=== PATIENT | female | born 1995 | race Caucasian/White ===

== ENCOUNTER → 2022-04-07 12:07 | Outpatient (BNVA) | payer SELFPAY | PROVIDERS: Family Provider Pediatrics; PCP Family Medicine; Visit Provider Registered Nurse Neonatal Intensive Care | DX: N39.0 Urinary tract infection, site not specified (principal); Z32.00 Encounter for pregnancy test, result unknown | CPT/HCPCS: 81000; 81025 ==

== ENCOUNTER 2022-11-27 14:13 | Emergency (ER) | payer MEDICAID, SELFPAY ==
[2022-11-27 14:21] VITALS: BP 121/85; PULSE 115; RESP 20; TEMP 37; O2SAT 98; BMI 24.4
--- NOTE | 2022-11-27 14:46 | W.ED.PSYCHS ---
Documented by User: AUNDREA Whittington 11/27/22 17:20 HPI - Psych General: Chief Complaint: Psychiatric Symptoms Stated Complaint: psych eval Time Seen by Provider: 11/27/22 14:37 History of Present Illness: Patient is a 27-year-old female comes to the ED with SI. Patient says for the past couple days she has been having worsening thoughts of SI. She told nursing triage that she had a plan to slit her throat while nude in front of a mirror. She states that she does practice cutting and recently cut her right thigh with razor blade. Patient states that she has a history of multiple personality disorder. She hears voices in her head and one of the voices constantly telling her to hurt or harm herself. Endorses methamphetamine use and says the last time she has had meth was approximately a week ago. Patient states she was supposed to be on medications, but does not currently take any medications. Associated symptoms: Reports depression and suicidal ideation Review of Systems Const: Denies: fever(s), chills or fatigue Eyes: Denies: change in vision or eye discomfort ENMT: Denies: throat pain, odynophagia, nasal discharge or nasal congestion Card: Denies: chest pain, palpitations, edema, swelling of feet/ankles, dyspnea on exertion or orthopnea Resp: Denies: dyspnea, productive cough or non-productive cough GI: Denies: abdominal pain, nausea, vomiting, diarrhea, constipation or hematochezia : Denies: flank pain, dysuria or hematuria Musc: Denies: neck pain, back pain or extremity swelling Skin/Breast: Denies: rash or new lesions Neuro: Denies: headache(s), numbness in extremities or weakness in extremities Psych: Reports: anxiety, depression and suicidal ideation [facility] ED PFSH: Medical History (Updated 11/27/22 @ 17:20 by AUNDREA Whittington) Multiple personality disorder Surgical History (Updated 11/27/22 @ 17:20 by AUNDREA Whittington) No pertinent past surgical history Physical Exam Const: COMMON NORMALS: patient oriented x3 and alert HENMT: COMMON NORMALS: normocephalic HEAD & SCALP: normocephalic MOUTH: Normal oral and palatal mucosa present THROAT: posterior oropharynx normal and uvula midline Neck/C-Spine: COMMON NORMALS: supple GENERAL: Yes normal visual inspection Resp: COMMON NORMALS: normal respiratory effort, No retractions, No use of accessory muscles and clear to auscultation bilaterally AUSCULTATION: clear to auscultation bilaterally Cardio: COMMON NORMALS: regular rate, regular rhythm, S1 normal heart sound present, S2 normal heart sound present, No gallops present (Cardio), No clicks present (Cardio), No murmurs present (Cardio) and Peripheral pulses 2+ throughout RATE: regular rate RHYTHM: regular rhythm HEART SOUNDS: S1 normal heart sound present and S2 normal heart sound present PERIPHERAL PULSES: Peripheral pulses 2+ throughout GI: COMMON NORMALS: Normal to inspection, nondistended, normoactive bowel sounds present, Soft to palpation, non-tender and no masses PALPATION: Yes Soft to palpation : COMMON NORMALS: Yes no CVA tenderness BLADDER/KIDNEY EXAM: Yes no CVA tenderness Back/Pelvis: COMMON NORMALS: no CVA tenderness Extremity: COMMON NORMALS: normal to inspection Neuro: COMMON NORMALS: patient oriented x3 SENSORIUM/ORIENTATION: Yes alert GAIT: Yes Normal gait present Psych: COMMON NORMALS: speech normal SPEECH: Yes normal speech THOUGHT CONTENT: Yes Suicidality present and Yes Hallucination(s) present auditory Skin: GENERAL SKIN EXAM: dry skin Course Vital Signs: Vital signs: Vital Signs Temperature 98.6 F 11/27/22 14:21 Pulse Rate 90 11/27/22 17:58 Respiratory Rate 17 11/27/22 17:58 Blood Pressure 114/60 11/27/22 17:58 Pulse Oximetry 98 11/27/22 17:58 Oxygen Delivery Me thod 11/27/22 17:58 [facility] - Psych Medical Decision Making Patient is a 27-year-old female comes to the ED with SI. Patient states she is also hearing voices that tell her to harm herself. She is not on any current medications. Vitals are stable. Psych prescreening labs performed. I contacted Dr. Riggs and told about patient case and they are unable to accept admission at this time because the NPU is full. The plan now is to call around to outside facilities to try to set up a bed to transfer patient. [facility] had an available bed and accepts admission of patient to their facility. Pt will be set up with EMS for transport. Lab Data I reviewed the patient's lab results. 11/27/22 15:40 11/27/22 15:40 Laboratory Results WBC 11.0 10^3/uL (4.0-10.0) H 11/27/22 15:40 RBC 5.08 10^6/uL (4.1-5.3) 11/27/22 15:40 Hgb 13.3 g/dL (11.5-15.3) 11/27/22 15:40 Hct 43.6 % (37.0-47.0) 11/27/22 15:40 MCV 85.8 fl (81-99) 11/27/22 15:40 MCH 26.2 pg (28.0-34.0) L 11/27/22 15:40 MCHC 30.5 g/dL (30.0-36.0) 11/27/22 15:40 RDW 15.7 % (12.1-15.1) H 11/27/22 15:40 Plt Count 292 10^3/cmm (130-400) 11/27/22 15:40 MPV 11.5 fL (7.4-10.4) H 11/27/22 15:40 Neut % (Auto) 78.7 % 11/27/22 15:40 Lymph % (Auto) 14.7 % 11/27/22 15:40 [place] % (Auto) 5.3 % 11/27/22 15:40 Eos % (Auto) 0.4 % 11/27/22 15:40 Baso % (Auto) 0.5 % 11/27/22 15:40 Neut # (Auto) 8.63 10^3/uL (1.8-7.7) H 11/27/22 15:40 Lymph # (Auto) 1.6 10^3/uL (0.8-4.8) 11/27/22 15:40 [place] # (Auto) 0.6 10^3/uL (0.2-0.9) 11/27/22 15:40 Eos # (Auto) 0.0 10^3/uL (0.0-0.8) 11/27/22 15:40 Baso # (Auto) 0.1 10^3/uL (0.0-0.1) 11/27/22 15:40 Nucleated RBC % (auto) 0 % 11/27/22 15:40 Nucleated RBCs # 0.0 /100WBC 11/27/22 15:40 Sodium 139 mmol/L (136-145) 11/27/22 15:40 Potassium 4.2 mmol/L (3.5-5.1) 11/27/22 15:40 Chloride 100 mmol/L (98-107) 11/27/22 15:40 Carbon Dioxide 31 mmol/L (22-29) H 11/27/22 15:40 Anion Gap 12.2 (5-19) 11/27/22 15:40 BUN 16 mg/dL (6-20) 11/27/22 15:40 Creatinine 0.6 mg/dL (0.5-0.9) 11/27/22 15:40 GFR Calculation 118.2 mL/min (90-130) 11/27/22 15:40 Glucose 111 mg/dL (65-115) 11/27/22 15:40 Calculated Osmolality 290 mOsm/kg (285-295) 11/27/22 15:40 Calcium 9.3 mg/dL (8.5-10.5) 11/27/22 15:40 Total Bilirubin 0.8 mg/dL (0.15-1.2) 11/27/22 15:40 AST 23 U/L (0-32) 11/27/22 15:40 ALT 21 U/L (0-33) 11/27/22 15:40 Alkaline Phosphatase 68 U/L (35-105) 11/27/22 15:40 Total Protein 7.4 g/dL (6.6-8.7) 11/27/22 15:40 Albumin 4.3 g/dL (3.5-5.2) 11/27/22 15:40 Globulin 3.1 g/dL (1.3-4.6) 11/27/22 15:40 HCG, Qual Negative (Negative) 11/27/22 15:40 Urine Color Straw (Yellow) 11/27/22 15:07 Urine Appearance Clear (CLEAR) 11/27/22 15:07 Urine pH 5 (5-7) 11/27/22 15:07 Ur Specific [place] 1.015 (1.005-1.030) 11/27/22 15:07 Urine Protein Neg (Negative) 11/27/22 15:07 Urine Glucose (UA) Norm (Normal) 11/27/22 15:07 Urine Ketones Negative (Negative) 11/27/22 15:07 Urine Blood 2+ (Negative) H 11/27/22 15:07 Urine Nitrate Negative (Negative) 11/27/22 15:07 Urine Bilirubin Neg (Negative) 11/27/22 15:07 Prot Sulfosalicylic Acd Negative (Negative) 11/27/22 15:07 Urine Urobilinogen Norm mg/dL (Negative) 11/27/22 15:07 Ur Leukocyte Esterase Negative (Negative) 11/27/22 15:07 Urine RBC Rare /hpf (0-2) 11/27/22 15:07 Urine WBC 0-4 /hpf (0-5) H 11/27/22 15:07 Ur Squamous Epith Cells 0-4 /hpf (0-5) H 11/27/22 15:07 Amorphous Sediment Not Reportable 11/27/22 15:07 Urine Bacteria Trace /hpf (NONE) 11/27/22 15:07 Salicylates < 0.3 mg/dL (3-10) L 11/27/22 15:40 Urine Opiates Screen Negative ng/mL (Negative) 11/27/22 15:07 Acetaminophen < 5.0 ug/mL (10-30) L 11/27/22 15:40 Ur Barbiturates Screen Negative ng/mL (Negative) 11/27/22 15:07 Ur Phencyclidine Scrn Negative ng/mL (Negative) 11/27/22 15:07 Ur Amphetamines Screen Negative ng/mL (Negative) 11/27/22 15:07 U Benzodiazepines Scrn Negative ng/mL (Negative) 11/27/22 15:07 Urine Cocaine Screen Negative ng/mL (Negative) 11/27/22 15:07 U Marijuana (THC) Screen Negative ng/mL (Negative) 11/27/22 15:07 Ethyl Alcohol < 10 mg/dL (0-10) 11/27/22 15:40 Coronavirus 229E (PCR) Not detected (NOT DETECT) 11/27/22 19:43 SARS-CoV-2 (PCR) Not detected (NOT DETECT) 11/27/22 19:43 Discharge Plan Discharge Patient Disposition: Xfer Psychiatric Hosp Clinical Impression: Suicidal ideation Condition: Stable Patient Instructions: Opioid Safety, Pain Management Sign Out Sign Out Data: Patient Sign Out occurred on 11/27/22 at 17:27. Patient's care was discussed, and care was transferred from to Mario Schaeffer DO. Coding Level of Care Code ED Coding Manager for Chg Fwd Exam Comprehensive Documented by User: Mario Schaeffer DO 11/28/22 07:38 HPI - Psych General: Chief Complaint: Psychiatric Symptoms Stated Complaint: psych eval Time Seen by Provider: 11/27/22 14:37 PFSH ED PFSH: Medical History (Updated 11/27/22 @ 17:20 by AUNDREA Whittington) Multiple personality disorder Surgical History (Updated 11/27/22 @ 17:20 by AUNDREA Whittington) No pertinent past surgical history Course Vital Signs: Vital signs: Vital Signs Temperature 98.6 F 11/27/22 14:21 Pulse Rate 90 11/27/22 17:58 Respiratory Rate 17 11/27/22 17:58 Blood Pressure 114/60 11/27/22 17:58 Pulse Oximetry 98 11/27/22 17:58 Oxygen Delivery Me thod 11/27/22 17:58 MDM - Psych Medical Decision Making Patient is a 27-year-old female comes to the ED with SI. Patient states she is also hearing voices that tell her to harm herself. She is not on any current medications. Vitals are stable. Psych prescreening labs performed. I contacted Dr. Riggs and told about patient case and they are unable to accept admission at this time because the NPU is full. The plan now is to call around to outside facilities to try to set up a bed to transfer patient. [facility] had an available bed and accepts admission of patient to their facility. Pt will be set up with EMS for transport. Chart reviewed and patient discussed with midlevel. Agree with assessment and plan. Patient was stable in the emergency room was transported to [place] psychiatric department Lab Data 11/27/22 15:40 11/27/22 15:40 Laboratory Results WBC 11.0 10^3/uL (4.0-10.0) H 11/27/22 15:40 RBC 5.08 10^6/uL (4.1-5.3) 11/27/22 15:40 Hgb 13.3 g/dL (11.5-15.3) 11/27/22 15:40 Hct 43.6 % (37.0-47.0) 11/27/22 15:40 MCV 85.8 fl (81-99) 11/27/22 15:40 MCH 26.2 pg (28.0-34.0) L 11/27/22 15:40 MCHC 30.5 g/dL (30.0-36.0) 11/27/22 15:40 RDW 15.7 % (12.1-15.1) H 11/27/22 15:40 Plt Count 292 10^3/cmm (130-400) 11/27/22 15:40 MPV 11.5 fL (7.4-10.4) H 11/27/22 15:40 Neut % (Auto) 78.7 % 11/27/22 15:40 Lymph % (Auto) 14.7 % 11/27/22 15:40 [place] % (Auto) 5.3 % 11/27/22 15:40 Eos % (Auto) 0.4 % 11/27/22 15:40 Baso % (Auto) 0.5 % 11/27/22 15:40 Neut # (Auto) 8.63 10^3/uL (1.8-7.7) H 11/27/22 15:40 Lymph # (Auto) 1.6 10^3/uL (0.8-4.8) 11/27/22 15:40 [place] # (Auto) 0.6 10^3/uL (0.2-0.9) 11/27/22 15:40 Eos # (Auto) 0.0 10^3/uL (0.0-0.8) 11/27/22 15:40 Baso # (Auto) 0.1 10^3/uL (0.0-0.1) 11/27/22 15:40 Nucleated RBC % (auto) 0 % 11/27/22 15:40 Nucleated RBCs # 0.0 /100WBC 11/27/22 15:40 Sodium 139 mmol/L (136-145) 11/27/22 15:40 Potassium 4.2 mmol/L (3.5-5.1) 11/27/22 15:40 Chloride 100 mmol/L (98-107) 11/27/22 15:40 Carbon Dioxide 31 mmol/L (22-29) H 11/27/22 15:40 Anion Gap 12.2 (5-19) 11/27/22 15:40 BUN 16 mg/dL (6-20) 11/27/22 15:40 Creatinine 0.6 mg/dL (0.5-0.9) 11/27/22 15:40 GFR Calculation 118.2 mL/min (90-130) 11/27/22 15:40 Glucose 111 mg/dL (65-115) 11/27/22 15:40 Calculated Osmolality 290 mOsm/kg (285-295) 11/27/22 15:40 Calcium 9.3 mg/dL (8.5-10.5) 11/27/22 15:40 Total Bilirubin 0.8 mg/dL (0.15-1.2) 11/27/22 15:40 AST 23 U/L (0-32) 11/27/22 15:40 ALT 21 U/L (0-33) 11/27/22 15:40 Alkaline Phosphatase 68 U/L (35-105) 11/27/22 15:40 Total Protein 7.4 g/dL (6.6-8.7) 11/27/22 15:40 Albumin 4.3 g/dL (3.5-5.2) 11/27/22 15:40 Globulin 3.1 g/dL (1.3-4.6) 11/27/22 15:40 HCG, Qual Negative (Negative) 11/27/22 15:40 Urine Color Straw (Yellow) 11/27/22 15:07 Urine Appearance Clear (CLEAR) 11/27/22 15:07 Urine pH 5 (5-7) 11/27/22 15:07 Ur Specific [place] 1.015 (1.005-1.030) 11/27/22 15:07 Urine Protein Neg (Negative) 11/27/22 15:07 Urine Glucose (UA) Norm (Normal) 11/27/22 15:07 Urine Ketones Negative (Negative) 11/27/22 15:07 Urine Blood 2+ (Negative) H 11/27/22 15:07 Urine Nitrate Negative (Negative) 11/27/22 15:07 Urine Bilirubin Neg (Negative) 11/27/22 15:07 Prot Sulfosalicylic Acd Negative (Negative) 11/27/22 15:07 Urine Urobilinogen Norm mg/dL (Negative) 11/27/22 15:07 Ur Leukocyte Esterase Negative (Negative) 11/27/22 15:07 Urine RBC Rare /hpf (0-2) 11/27/22 15:07 Urine WBC 0-4 /hpf (0-5) H 11/27/22 15:07 Ur Squamous Epith Cells 0-4 /hpf (0-5) H 11/27/22 15:07 Amorphous Sediment Not Reportable 11/27/22 15:07 Urine Bacteria Trace /hpf (NONE) 11/27/22 15:07 Salicylates < 0.3 mg/dL (3-10) L 11/27/22 15:40 Urine Opiates Screen Negative ng/mL (Negative) 11/27/22 15:07 Acetaminophen < 5.0 ug/mL (10-30) L 11/27/22 15:40 Ur Barbiturates Screen Negative ng/mL (Negative) 11/27/22 15:07 Ur Phencyclidine Scrn Negative ng/mL (Negative) 11/27/22 15:07 Ur Amphetamines Screen Negative ng/mL (Negative) 11/27/22 15:07 U Benzodiazepines Scrn Negative ng/mL (Negative) 11/27/22 15:07 Urine Cocaine Screen Negative ng/mL (Negative) 11/27/22 15:07 U Marijuana (THC) Screen Negative ng/mL (Negative) 11/27/22 15:07 Ethyl Alcohol < 10 mg/dL (0-10) 11/27/22 15:40 Coronavirus 229E (PCR) Not detected (NOT DETECT) 11/27/22 19:43 SARS-CoV-2 (PCR) Not detected (NOT DETECT) 11/27/22 19:43 Discharge Plan Discharge Patient Disposition: Xfer Psychiatric Hosp Clinical Impression: Suicidal ideation Condition: Stable Patient Instructions: Opioid Safety, Pain Management Sign Out Sign Out Data: Patient Sign Out occurred on 11/27/22 at 17:27. Patient's care was discussed, and care was transferred from to Mario Schaeffer DO. Coding Level of Care Code ED Coding Manager for Chg Fwd Exam Comprehensive
[2022-11-27 15:48] LABS: Basophils # 0.1 10^3/uL (0.0-0.1); Basophils % 0.5 %; Eosinophils % 0.4 %; Hematocrit 43.6 % (37.0-47.0); Hemoglobin 13.3 g/dL (11.5-15.3); Lymphocytes # 1.6 10^3/uL (0.8-4.8); Lymphocytes % 14.7 %; Mean Corpuscular HGB Conc 30.5 g/dL (30.0-36.0); Mean Corpuscular Hemoglobin 26.2 pg (28.0-34.0); Mean Corpuscular Volume 85.8 fl (81-99); Mean Platelet Volume 11.5 fL (7.4-10.4); Monocytes # 0.6 10^3/uL (0.2-0.9); Monocytes % 5.3 %; Neutrophils # 8.63 10^3/uL (1.8-7.7); Neutrophils % 78.7 %; Nucleated Red Blood Cells % 0 %; Platelet Count 292 10^3/cmm (130-400); Red Blood Count 5.08 10^6/uL (4.1-5.3); Red Cell Distribution Width 15.7 % (12.1-15.1)
[2022-11-27 16:00] LABS: Add Urine Microscopic? YES; Amphetamines Screen Urine Negative (Negative); Barbiturates Screen Urine Negative (Negative); Benzodiazepines Screen Urine Negative (Negative); Bilirubin Urine Neg (Negative); Blood Urine 2+ (Negative); Cocaine Screen Urine Negative (Negative); Glucose Urine UA Norm (Normal); Ketones Urine Negative (Negative); Leukocyte Esterase Urine Negative (Negative); Nitrate Urine Negative (Negative); Opiate Screen Urine Negative (Negative); PCP Screen Urine Negative (Negative); Protein Urine Neg (Negative); RBC Urine RARE /hpf (0-2); Specific Gravity, Urine 1.015 (1.005-1.030); Sulfosalicylic Acid Urine Negative (Negative); THC Screen Urine Negative (Negative); Urine Appearance Clear (CLEAR); Urine Color Straw (Yellow); Urobilinogen Urine Norm (Negative); pH Urine 5 (5-7)
[2022-11-27 16:01] LABS: Add Urine Culture? No; Bacteria Urine TRACE /hpf; Squamous Epithelial Cell Urine 0-4 /hpf (0-5); WBC Urine 0-4 /hpf (0-5)
[2022-11-27 16:04] VITALS: PULSE 100; RESP 17; O2SAT 97
[2022-11-27 16:13] LABS: HCG, Serum Qual Negative (Negative)
[2022-11-27] MEDS: LORazepam 2 mg Tablet PO (16:22)
[2022-11-27 16:27] LABS: Alanine Aminotransferase 21 U/L (0-33); Albumin Level 4.3 g/dL (3.5-5.2); Alkaline Phosphatase 68 U/L (35-105); Anion Gap 12.2 (5-19); Aspartate Amino Transferase 23 U/L (0-32); Blood Urea Nitrogen 16 mg/dL (6-20); Calcium 9.3 mg/dL (8.5-10.5); Carbon Dioxide 31 mmol/L (22-29); Chloride 100 mmol/L (98-107); Globulin 3.1 g/dL (1.3-4.6); Glomerular Filtration Rate 118.2 mL/min (90-130); Glucose 111 mg/dL (65-115); Osmolality Calculated 290 mOsm/kg (285-295); Potassium 4.2 mmol/L (3.5-5.1); Sodium 139 mmol/L (136-145); Total Bilirubin 0.8 mg/dL (0.15-1.2); Total Protein 7.4 g/dL (6.6-8.7)
[2022-11-27 16:29] LABS: Acetaminophen < 5.0 ug/mL (10-30); Alcohol Level < 10 mg/dL (0-10); Salicylate < 0.3 mg/dL (3-10)
[2022-11-27 17:58] VITALS: BP 114/60; PULSE 90; RESP 17; O2SAT 98
[2022-11-27 22:01] LABS: Adenovirus Not Detected (NOT DETECT); Chlamydia Pneumoniae Not Detected (NOT DETECT); Coronavirus 229E,HKU1,NL63,OC4 Not Detected (NOT DETECT); Human Metapneumovirus Not Detected (NOT DETECT); Human Rhinovirus/Enterovirus Not Detected (NOT DETECT); Influenza A Not Detected (NOT DETECT); Influenza A H1 Not Detected (NOT DETECT); Influenza A H1-2009 Not Detected (NOT DETECT); Influenza A H3 Not Detected (NOT DETECT); Influenza B Not Detected (NOT DETECT); Mycoplasma Pneumoniae Not Detected (NOT DETECT); Parainfluenza Virus Type 1 Not Detected (NOT DETECT); Parainfluenza Virus Type 2 Not Detected (NOT DETECT); Parainfluenza Virus Type 3 Not Detected (NOT DETECT); Parainfluenza Virus Type 4 Not Detected (NOT DETECT); Respiratory Syncytial Virus A Not Detected (NOT DETECT); Respiratory Syncytial Virus B Not Detected (NOT DETECT); SARS-COV-2 Not Detected (NOT DETECT)
== END 2022-11-27 20:11 ==
PROVIDERS: Physician Assistant; Emergency Provider Family Medicine
DX: R45.851 Suicidal ideations (principal); Z20.822 Contact with and (suspected) exposure to COVID-19
CPT/HCPCS: 36415; 80053; 80306; 80307; 81001; 84703; 85025; 87635; 99283

== ENCOUNTER 2023-01-20 09:53 | Inpatient (IN) | payer MEDICAID, SELFPAY ==
[2023-01-20 10:06] VITALS: BP 117/83; PULSE 121; RESP 16; TEMP 37.1; O2SAT 98
--- NOTE | 2023-01-20 10:59 | PC.PHAR ---
PT STATES SHE TAKES CARE OF HER OWN MEDICATIONS-PT STATES SHE IS STILL TAKING ALL HER MEDS EXCEPT FOR BUSPAR 10MG TID FILLED 11/30/22 20D/S STATES SHE RAN OUT LAST TUESDAY AND WOULD LIKE TO GET THE MG INCREASED-EXT MED SHOWS ALL OTHER MEDS FILLED ON 11/30/22 30D/S PT STATES STILL HAS SOME OF THE MEDICATIONS-PT STATES SHE IS NOT TAKING HYDROXYZINE PAMOATE 50MG Q6H PRN RX FILLED 11/30/22 30DS-PT STATES SHE IS NOT USING THE NICOTINE PATCHES- PT STATES ARE MADE IN THE PHARMACY COMMENTS
[2023-01-20 11:00] LABS: Basophils % 0.4 %; Eosinophils % 0.3 %; Hematocrit 45.5 % (37.0-47.0); Hemoglobin 13.8 g/dL (11.5-15.3); Lymphocytes # 1.1 10^3/uL (0.8-4.8); Lymphocytes % 10.9 %; Mean Corpuscular HGB Conc 30.3 g/dL (30.0-36.0); Mean Corpuscular Hemoglobin 26.3 pg (28.0-34.0); Mean Corpuscular Volume 86.8 fl (81-99); Monocytes # 0.3 10^3/uL (0.2-0.9); Monocytes % 3.4 %; Neutrophils # 8.25 10^3/uL (1.8-7.7); Neutrophils % 84.5 %; Nucleated Red Blood Cells % 0 %; Platelet Count 266 10^3/cmm (130-400); Red Blood Count 5.24 10^6/uL (4.1-5.3); Red Cell Distribution Width 14.7 % (12.1-15.1); White Blood Count 9.8 10^3/uL (4.0-10.0)
[2023-01-20 11:06] LABS: Amphetamines Screen Urine Positive (Negative); Barbiturates Screen Urine Negative (Negative); Benzodiazepines Screen Urine Negative (Negative); Cocaine Screen Urine Negative (Negative); Opiate Screen Urine Negative (Negative); PCP Screen Urine Negative (Negative); THC Screen Urine Negative (Negative)
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
[2023-01-20 11:09] LABS: Add Urine Microscopic? YES; Bilirubin Urine Neg (Negative); Blood Urine 3+ (Negative); Glucose Urine UA Norm (Normal); Ketones Urine 1+ (Negative); Leukocyte Esterase Urine 1+ (Negative); Nitrate Urine Negative (Negative); Protein Urine Neg (Negative); Urine Appearance Hazy (CLEAR); Urine Color Yellow (Yellow); Urobilinogen Urine Neg (Negative); pH Urine 5 (5-7)
[2023-01-20 11:12] LABS: HCG, Serum Qual Negative (Negative)
[2023-01-20 11:13] LABS: Add Urine Culture? No; Amorphous Sediment Urine 1+ /hpf; Bacteria Urine 2+ /hpf; Hyaline Casts Urine 0-4 /lpf; Mucus Urine 2+ /hpf; RBC Urine 80-100 /hpf (0-2); WBC Urine 25-40 /hpf (0-5)
[2023-01-20 11:18] LABS: Alanine Aminotransferase 16 U/L (0-33); Albumin Level 4.5 g/dL (3.5-5.2); Alkaline Phosphatase 50 U/L (35-105); Aspartate Amino Transferase 19 U/L (0-32); Blood Urea Nitrogen 15 mg/dL (6-20); Carbon Dioxide 25 mmol/L (22-29); Chloride 103 mmol/L (98-107); Creatinine Clr Calc Pharmacy 123.8322; Globulin 3.2 g/dL (1.3-4.6); Glomerular Filtration Rate 118.2 mL/min (90-130); Glucose 89 mg/dL (65-115); Osmolality Calculated 288 mOsm/kg (285-295); Sodium 139 mmol/L (136-145); Total Bilirubin 0.8 mg/dL (0.15-1.2); Total Protein 7.7 g/dL (6.6-8.7)
[2023-01-20 11:19] LABS: Acetaminophen < 5.0 ug/mL (10-30); Salicylate < 0.3 mg/dL (3-10)
[2023-01-20 12:29] VITALS: BP 138/88; PULSE 115; RESP 17; TEMP 36.6; O2SAT 95
[2023-01-20 12:32] VITALS: BP 117/83; PULSE 121; RESP 16; TEMP 37.1; O2SAT 98
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
[2023-01-20 14:00] VITALS: BP 140/89; PULSE 98; RESP 17; TEMP 36.5; O2SAT 98
[2023-01-20 22:00] VITALS: BP 116/65; PULSE 110; RESP 15; TEMP 36.8; O2SAT 98
[2023-01-21 06:00] VITALS: RESP 18
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
--- NOTE | 2023-01-21 08:28 | PC.OT ---
OT Clair Attempted - Patient asleep in bed at time of evaluation, will attempt again later this afternoon.
[2023-01-21] MEDS: OLANZapine 5 mg ODT PO (11:15)
[2023-01-21 14:00] VITALS: BP 108/68; PULSE 106; RESP 18; TEMP 36.7; O2SAT 97
[2023-01-21 22:00] VITALS: BP 113/68; PULSE 82; RESP 15; TEMP 36.7; O2SAT 97
[2023-01-22 06:00] VITALS: RESP 17
--- NOTE | 2023-01-22 13:43 | P.NPUPN_ITS ---
Subjective NPU Subjective: Patient presented today reporting she was doing a little better. She continues to deny of the accusations on the 96-hour hold as well as deny recent drug use. She reports not having used for weeks to a month and her UDS is positive for amphetamines. She denied having any idea how that could be and had no explanation for her bizarre behavior prior to admission and her jitteriness and strange behaviors after admission. We discussed making sure her home medications were restarted and appropriate and she denied any need for any medication changes. Mental Status Exam MSE Comments: This is a slender white female in hospital scrubs with limited grooming and eye contact. Notable scarring onher arms and likely track rivers and bruising of different ages. No abnormal movements except for mild psychomotor agitation. Cooperative with exam in mild distress. Speech was limited and increased rate and normal volume. Mood described as okay, affect is congruent. Thought process, organized. Thought content: patient denies suicidal or homicidal ideation, no delusions reported but psychosis noted likely secondary to methamphetamine use, and denies any auditory or visual hallucinations. Attention and concentration are intact and memory appeared unreliable but none were formally tested. She is alert and oriented times three. Insight and judgment are impaired. Impulse control is impaired. Vitals/I&O/Wt Last Vital Signs Temp 98.0 F 01/21/23 22:00 Pulse 82 01/21/23 22:00 Resp 17 01/22/23 06:00 BP 113/68 01/21/23 22:00 Pulse Ox 97 01/21/23 22:00 O2 Del Method 01/21/23 22:00 Weight last 48 hrs Weight 56.699 kg Data NPU 01/20/23 10:43 01/20/23 10:43 A&P Assessment and plan (1) Suicidal ideation: (2) Methamphetamine use disorder, severe: (3) Psychosis: Plan This is a 27 year old white woman with a history of trauma, history of depr ession, anxiety and PTSD, positive UDS for amphetamine use, and genetic loading for mental health, addiction and lethality issues who presents with psychosis likely secondary to methamphetamine use reporting she does not know why she presents but is currently open to continuing the medications she is currently taking in the psychiatric unit. 1. Continue current medications and make sure all home medications were restarted. 2. Encourage individual, group and milieu therapy 3. Continue q-15 minute check for safety 4. Recommend sober living treatment at the highest level of care to which the patient is willing to commit. Involuntary Hold Information 96 Hour Hold: 96 Hour Involuntary Admission: Yes 96 Hour Hold Ending Date: 01/26/23 96 Hour Hold Ending Time: 11:30 Attestations NPU Medical Necessity Statement*: Inpatient hospitalization is medically necessary and the clinically appropriate intervention at this time. We will monitor medications and make changes as indicated. Likely length of stay is three to five days. Coding Level of Care Code Acute Code for Chg Fwd Diagnoses Suicidal ideation R45.851 Methamphetamine use disorder, severe F15.20 Psychosis F29
[2023-01-22 14:00] VITALS: BP 105/60; PULSE 85; RESP 16; TEMP 36.7; O2SAT 97
[2023-01-22] MEDS: BuSPIRONE 10 mg Tablet PO ×2 (15:00→21:53)
[2023-01-22 17:03] VITALS: PULSE 100; RESP 16; O2SAT 100
[2023-01-22 21:04] VITALS: BP 112/68; PULSE 89; RESP 15; TEMP 36.7; O2SAT 98
[2023-01-22] MEDS: quetiapine 25 mg Tablet 50 MG PO (21:53)
[2023-01-23 06:00] VITALS: RESP 16
[2023-01-23] MEDS: BuSPIRONE 10 mg Tablet PO ×3 (09:15→21:34)
--- NOTE | 2023-01-23 10:23 | P.NPUPN_ITS ---
Subjective NPU Subjective: Patient presented today reporting that she was feeling better. She has somewhat skirted the idea that there was more recent drug use but has taken on an attitude of the importance of her really working on her addiction. We discussed the risks, benefits and alternatives of starting naltrexone to assist with cravings and she understood and agreed to proceed as is documented in this note. She was more positive about engaging in treatment and we discussed her working with the treatment team on Tuesday. Mental Status Exam MSE Comments: This is a slender white female in hospital scrubs with limited grooming and eye contact. Notable scarring onher arms and likely track rivers and bruising of different ages. No abnormal movements. Cooperative with exam in no acute distress. Speech was more spontaneous and more normal rate and normal volume. Mood described as better, affect is congruent. Thought process, organized. Thought content: patient denies suicidal or homicidal ideation, no delusions reported or noted, and denies any auditory or visual hallucinations. Attention and concentration are intact and memory appeared unreliable but none were formally tested. She is alert and oriented times three. Insight and judgment are improving. Impulse control is limited. Vitals/I&O/Wt Last Vital Signs Temp 98.0 F 01/22/23 21:04 Pulse 89 01/22/23 21:04 Resp 16 01/23/23 06:00 BP 112/68 01/22/23 21:04 Pulse Ox 98 01/22/23 21:04 O2 Del Method 01/22/23 21:04 Weight last 48 hrs Weight 56.245 kg Weight 55.905 kg Data NPU 01/20/23 10:43 01/20/23 10:43 A&P Assessment and plan (1) Suicidal ideation: (2) Methamphetamine use disorder, severe: (3) Psychosis: Plan This is a 27 year old white woman with a history of trauma, history of depression, anxiety and PTSD, positive UDS for amphetamine use, and genetic loading for mental health, addiction and lethality issues who presents with psychosis likely secondary to methamphetamine use reporting she does not know why she presents but is currently open to continuing the medications she is currently taking in the psychiatric unit. 1. Continue current medications and make sure all home medications were restarted. Start naltrexone 50 mg p.o. daily. 2. Encourage individual, group and milieu therapy 3. Continue q-15 minute check for safety 4. Recommend sober living treatment at the highest level of care to which the patient is willing to commit. Involuntary Hold Information 96 Hour Hold: 96 Hour Involuntary Admission: Yes 96 Hour Hold Ending Date: 01/26/23 96 Hour Hold Ending Time: 11:30 Attestations NPU Medical Necessity Statement*: Inpatient hospitalization is medically necessary and the clinically appropriate intervention at this time. We will monitor medications and make changes as indicated. Likely length of stay is 1-3 days. Coding Level of Care Code Acute Code for [facility] Fwd Diagnoses Suicidal ideation R45.851 Methamphetamine use disorder, severe F15.20 Psychosis F29
[2023-01-23] MEDS: OLANZapine 5 mg ODT PO (13:41)
[2023-01-23 14:00] VITALS: BP 99/49; PULSE 89; RESP 16; TEMP 36.6; O2SAT 96
[2023-01-23 20:31] VITALS: BP 100/61; PULSE 95; RESP 15; TEMP 36.9; O2SAT 97
[2023-01-23] MEDS: quetiapine 25 mg Tablet 50 MG PO (21:34)
[2023-01-24 06:00] VITALS: BP 113/72; PULSE 86; RESP 18; TEMP 36.7; O2SAT 99
[2023-01-24] MEDS: BuSPIRONE 10 mg Tablet PO ×3 (08:24→20:29)
[2023-01-24] MEDS: naltrexone hcl 50 mg Tablet PO (09:07)
[2023-01-24 14:00] VITALS: BP 113/59; PULSE 110; RESP 17; TEMP 36.9; O2SAT 97
[2023-01-24] MEDS: OLANZapine 5 mg ODT PO (14:48)
[2023-01-24] MEDS: nicotine 2 mg Gum BUCCAL (14:57)
[2023-01-24] MEDS: acetaminophen 325 mg Tablet 650 MG PO (16:51)
[2023-01-24] MEDS: quetiapine 25 mg Tablet PO (16:51)
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
[2023-01-24] MEDS: quetiapine 25 mg Tablet 50 MG PO (20:30)
[2023-01-24 22:00] VITALS: BP 103/63; PULSE 90; RESP 18; TEMP 36.8; O2SAT 97
[2023-01-25] MEDS: naltrexone hcl 50 mg Tablet PO (08:08)
[2023-01-25] MEDS: BuSPIRONE 10 mg Tablet PO (08:08)
[2023-01-25] MEDS: nicotine 2 mg Gum BUCCAL ×2 (09:30→12:25)
[2023-01-25] MEDS: OLANZapine 5 mg ODT PO (13:02)
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
[2023-01-25 13:09] VITALS: BP 103/63; PULSE 90; RESP 18; TEMP 36.8; O2SAT 97
== END 2023-01-25 11:25 | disposition home or self-care (01) | DRG 897 ==
LOC: ER 11:08 → NP 11:54
PROVIDERS: Admitting Provider Psychiatry & Neurology Psychiatry; Emergency Provider Family Medicine; Visit Provider Psychiatry & Neurology Psychiatry
DX: F15.259 Other stimulant dependence with stimulant-induced psychotic disorder, unspecified (principal); R45.851 Suicidal ideations; F43.10 Post-traumatic stress disorder, unspecified; Z62.810 Personal history of physical and sexual abuse in childhood; Z62.811 Personal history of psychological abuse in childhood; Z91.410 Personal history of adult physical and sexual abuse; Z91.411 Personal history of adult psychological abuse
CPT/HCPCS: 80053; 80306; 80307; 81001; 84703; 85025; 97150; 97165; 99285

== ENCOUNTER 2023-08-09 10:02 | Emergency (ER) | payer MEDICAID, SELFPAY ==
[2023-08-09] VITALS (18 sets, daily range): BP systolic 105–133; BP diastolic 56–75; PULSE 87–126; RESP 15–19; TEMP 36.8; O2SAT 99–100; BMI 24.2
--- NOTE | 2023-08-09 10:07 | XRR_ITS ---
PROCEDURE INFORMATION: Exam: XR Chest Exam date and time: 08/09/2023 10:17 AM Age: 28 years old Clinical indication: Cough and dyspnea; Additional info: Dyspnea/cough TECHNIQUE: Imaging protocol: Radiologic exam of the chest. Views: 1 view. COMPARISON: CR XR chest 1V [id number] 10/30/2018 10:36 PM FINDINGS: Lungs: Unremarkable. No consolidation. Pleural spaces: Unremarkable. No pleural effusion. No pneumothorax. Heart/Mediastinum: Unremarkable. No cardiomegaly. Bones/joints: Unremarkable. XR/XR chest 1V portable [id number] IMPRESSION: No acute findings.
--- NOTE | 2023-08-09 10:16 | ED_ITS ---
HPI - Arrhythmia/Palpitations General: Chief Complaint: Arrhythmia/Palpitations Stated Complaint: Tachy heart sent from [facility] papers in hand Time Seen by Provider: 08/09/23 10:04 Source: patient Mode of arrival: ambulatory History of Present Illness: 28-year-old female presents emergency room complaining of palpitations and rac ing heart. She has a history of SVT. She His inpatient rehab at [facility] from methamphetamines its been 1 week since she used. She denies any excessive use of caffeine and energy drinks etc. Medications reviewed she does have history of reactive airways and is on albuterol as needed. Patient denies using any albuterol this morning. MD complaint: rapid heart beat Onset (ago): hour(s) Duration: intermittent Severity: mild Arrhythmia history: SVT Associated symptoms: Deny anxiety, cough, diaphoresis, muscle cramps, nausea, paresthesias, pre-syncope, sense of impending doom, short of breath, syncope or vomiting Review of Systems Const: Denies: fever(s), chills or diaphoresis Card: Reports: palpitations; Denies: chest pain, syncope or pre-syncope Resp: Denies: dyspnea GI: Denies: abdominal pain, nausea or vomiting : Denies: dysuria, urinary frequency or urinary urgency Musc: Denies: neck pain, back pain or muscle cramps Skin/Breast: Denies: rash Psych: Denies: anxiety PFS ED PFSH: Medical History (Updated 08/09/23 @ 13:35 by Mario Schaeffer DO) Methamphetamine use disorder, severe Multiple personality disorder SVT (supraventricular tachycardia) Surgical History No pertinent past surgical history Physical Exam Const: COMMON NORMALS: no acute distress GENERAL APPEARANCE: cooperative and comfortable ORIENTATION/CONSCIOUSNESS: Yes awake, Yes oriented to person, Yes oriented to place and Yes oriented to time HENMT: COMMON NORMALS: normocephalic, atraumatic and hearing grossly normal bilaterally HEAD & SCALP: normocephalic and atraumatic Resp: COMMON NORMALS: normal respiratory effort, No retractions, No use of accessory muscles and clear to auscultation bilaterally AUSCULTATION: clear to auscultation bilaterally Cardio: COMMON NORMALS: regular rate, regular rhythm and No murmurs present (Cardio) RATE: regular rate RHYTHM: regular rhythm GI: COMMON NORMALS: Soft to palpation and No hepatosplenomegaly present AUSCULTATION: Yes normoactive bowel sounds PALPATION: Yes Soft to palpation, No Tenderness to palpation present (GI), No Guarding due to palpation present (GI) and Yes No hepatosplenomegaly present Extremity: COMMON NORMALS: normal to inspection, capillary refill normal, no clubbing, cyanosis or edema, no calf tenderness and no pedal edema Neuro: SENSORIUM/ORIENTATION: Yes oriented to person, Yes oriented to place and Yes oriented to time Skin: COMMON NORMALS: no rashes or lesions noted GENERAL SKIN EXAM: no rashes or lesions noted Course Vital Signs: Vital signs: Vital Signs Temperature 98.3 F 08/09/23 10:06 Pulse Rate 115 H 08/09/23 11:40 Respiratory Rate 15 08/09/23 11:40 Blood Pressure 114/67 08/09/23 11:40 Pulse Oximetry 100 08/09/23 11:30 Oxygen Delivery Me thod Room Air 08/09/23 10:06 MDM - Arrhythmia/Palpitations Medical Decision Making Labs and imaging reviewed no significant findings sinus tachycardia no SVT improved with below 100 while at rest but increased 120s 130s with any activity. Offered fluids patient declined discharge home increase p.o. fluid intake. Avoid any stimulating medications. Differential Diagnosis Likely palpitations, anxiety, sinus tachycardia and supraventricular tachycardia Medical Records I reviewed the patient's medical records. Lab Data I reviewed the patient's lab results. 08/09/23 10:22 08/09/23 10:22 Radiology Impressions Chest X-Ray 08/09/23 10:07 IMPRESSION: No acute findings. Laboratory Results WBC 8.73 10^3/uL (3.29-11.43) 08/09/23 10: RBC 4.28 10^6/uL (3.85-5.65) 08/09/23 10:22 Hgb 11.00 g/dL (11.27-16.99) L 08/09/23 10:22 Hct 36.5 % (36-47) 08/09/23 10:22 MCV 85.3 fl (85-98) 08/09/23 10:22 MCH 25.7 pg (27-33) L 08/09/23 10:22 MCHC 30.1 g/dL (30-55) 08/09/23 10: RDW 14.9 % (12.1-15.1) 08/09/23 10: Plt Count 224 10^3/cmm (157-399) 08/09/23 10: MPV 11.1 fL (7.4-10.4) H 08/09/23 10:22 Neut % (Auto) 77.5 % 08/09/23 10:22 Lymph % (Auto) 12.9 % 08/09/23 10:22 Robeson % (Auto) 8.1 % 08/09/23 10:22 Eos % (Auto) 0.7 % 08/09/23 10:22 Baso % (Auto) 0.5 % 08/09/23 10: Neut # (Auto) 6.76 10^3/uL (1.8-7.7) 08/09/23 10: Lymph # (Auto) 1.1 10^3/uL (0.8-4.8) 08/09/23 10:22 Robeson # (Auto) 0.7 10^3/uL (0.2-0.9) 08/09/23 10:22 Eos # (Auto) 0.1 10^3/uL (0.0-0.8) 08/09/23 10:22 Baso # (Auto) 0.0 10^3/uL (0.0-0.1) 08/09/23 10:22 Nucleated RBC % (auto) 0 % 08/09/23 10: Nucleated RBCs # 0.0 /100WBC 08/09/23 10:22 D-Dimer 0.45 ug/mLFEU (0-0.59) 08/09/23 10:22 Sodium 139 mmol/L (136-145) 08/09/23 10:22 Potassium 4.6 mmol/L (3.5-5.1) 08/09/23 10: Chloride 103 mmol/L (98-107) 08/09/23 10: Carbon Dioxide 29 mmol/L (22-29) 08/09/23 10: Anion Gap 11.6 (5-19) 08/09/23 10: BUN 13 mg/dL (6-20) 08/09/23 10:22 Creatinine 0.6 mg/dL (0.5-0.9) 08/09/23 10:22 GFR Calculation 117.4 mL/min (90-130) 08/09/23 10: Glucose 111 mg/dL (65-115) 08/09/23 10:22 Calculated Osmolality 289 mOsm/kg (285-295) 08/09/23 10:22 Calcium 9.0 mg/dL (8.5-10.5) 08/09/23 10:22 Total Bilirubin 0.5 mg/dL (0.15-1.2) 08/09/23 10:22 AST 13 U/L (0-32) 08/09/23 10:22 ALT 13 U/L (0-33) 08/09/23 10: Alkaline Phosphatase 52 U/L (35-105) 08/09/23 10: Total Protein 6.6 g/dL (6.6-8.7) 08/09/23 10:22 Albumin 3.6 g/dL (3.5-5.2) 08/09/23 10:22 Globulin 3.0 g/dL (1.3-4.6) 08/09/23 10:22 Lipase 19 U/L (13-60) 08/09/23 10: TSH 0.17 uIU/mL (0.27-4.20) L 08/09/23 10:22 HCG, Qual Negative (Negative) 08/09/23 10:22 Urine Color Yellow (Yellow) 08/09/23 10:31 Urine Appearance Sl hazy (CLEAR) A 08/09/23 10:31 Urine pH 7 (5-7) 08/09/23 10:31 Ur Specific Rembert 1.010 (1.005-1.030) 08/09/23 10:31 Urine Protein Neg (Negative) 08/09/23 10:31 Urine Glucose (UA) Norm (Normal) 08/09/23 10:31 Urine Ketones Negative (Negative) 08/09/23 10:31 Urine Blood Neg (Negative) 08/09/23 10:31 Urine Nitrate Negative (Negative) 08/09/23 10:31 Urine Bilirubin Neg (Negative) 08/09/23 10:31 Urine Urobilinogen Norm mg/dL (Negative) 08/09/23 10:31 Ur Leukocyte Esterase Negative (Negative) 08/09/23 10:31 Urine RBC Rare /hpf (0-2) 08/09/23 10:31 Urine WBC 0-4 /hpf (0-5) H 08/09/23 10:31 Ur Squamous Epith Cells 0-4 /hpf (0-5) H 08/09/23 10:31 Amorphous Sediment 1+ /hpf 08/09/23 10:31 Urine Bacteria Trace /hpf (NONE) 08/09/23 10:31 Urine Mucus Trace /hpf 08/09/23 10:31 All radiology interpretation(s) finalized by discharge Discharge Plan Discharge Patient Disposition: Home Clinical Impression: Palpitations, Sinus tachycardia Condition: Stable Prescriptions: No Action acetaminophen 500 mg Tablet 1,000 mg PO Q6H PRN (Reason: Pain) albuterol sulfate 90 mcg/actuation Hfa Aerosol Inhaler 2 puff INHALATION QID PRN (Reason: Shortness Of Breath) clonidine HCl 0.1 mg Tablet 0.1 mg PO TID PRN (Reason: Anxiety) Vistaril 50 mg Capsule 50 mg PO TID PRN (Reason: Anxiety) olanzapine 10 mg Tablet 10 mg PO QPM baclofen 10 mg Tablet 10 mg PO TID PRN (Reason: Pain) prazosin 2 mg Capsule 4 mg PO QPM bupropion HCl 150 mg Tablet Extended Release 24 Hr 150 mg PO QAM Discharge Orders: Discharge ED (Routine); Ordered 08/09/23 Ordered By: Mario Schaeffer Discharge Diet: Usual diet Discharge Activity: Increase activity as tolerated Patient Instructions: Opioid Safety, Pain Management Activity Restrictions/Additional Instructions: You were seen today for rapid heart rate your laboratory tests were normal your EKG showed a sinus tachycardia. Prior to discharge we had offered IV fluids but she declined. If any worsening or changes symptoms you can return to emergency room to be reevaluated. Coding Level of Care Code ED Supervisor Files for Audra Sequeira
--- NOTE | 2023-08-09 10:24 | ECG_ITS ---
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 Measurements Intervals [place] Rate: 116 P: 61 IL: 111 QRS: 54 QRSD: 80 T: 34 QT: 321 QTc: 448 Interpretive Statements SINUS TACHYCARDIA WITH SHORT IL INTERVAL No previous ECG available for comparison Electronically Signed On 08-09-2023 12:17:07 CDT by Brynn Limon M.D. [email or web address] f
[2023-08-09 10:28] LABS: Basophils % 0.5 %; Eosinophils # 0.1 10^3/uL (0.0-0.8); Eosinophils % 0.7 %; Hematocrit 36.5 % (36-47); Lymphocytes # 1.1 10^3/uL (0.8-4.8); Lymphocytes % 12.9 %; Mean Corpuscular HGB Conc 30.1 g/dL (30-55); Mean Corpuscular Hemoglobin 25.7 pg (27-33); Mean Corpuscular Volume 85.3 fl (85-98); Mean Platelet Volume 11.1 fL (7.4-10.4); Monocytes # 0.7 10^3/uL (0.2-0.9); Monocytes % 8.1 %; Neutrophils # 6.76 10^3/uL (1.8-7.7); Neutrophils % 77.5 %; Nucleated Red Blood Cells % 0 %; Platelet Count 224 10^3/cmm (157-399); Red Blood Count 4.28 10^6/uL (3.85-5.65); Red Cell Distribution Width 14.9 % (12.1-15.1); White Blood Count 8.73 10^3/uL (3.29-11.43)
--- NOTE | 2023-08-09 10:48 | PC.PHAR ---
PT STATES SHE IS DUE FOR MEDICATIONS SOON. 08/09/23 10:48 AM
[2023-08-09 10:52] LABS: HCG, Serum Qual Negative (Negative)
[2023-08-09 10:53] LABS: Bilirubin Urine Neg (Negative); Blood Urine Neg (Negative); Glucose Urine UA Norm (Normal); Ketones Urine Negative (Negative); Leukocyte Esterase Urine Negative (Negative); Nitrate Urine Negative (Negative); Protein Urine Neg (Negative); Urine Appearance SL Hazy (CLEAR); Urine Color Yellow (Yellow); Urobilinogen Urine Norm (Negative); pH Urine 7 (5-7)
[2023-08-09 10:54] LABS: Add Urine Microscopic? YES
[2023-08-09 11:05] LABS: Add Urine Culture? No; Amorphous Sediment Urine 1+ /hpf; Bacteria Urine TRACE /hpf; Mucus Urine TRACE /hpf; RBC Urine RARE /hpf (0-2); Squamous Epithelial Cell Urine 0-4 /hpf (0-5); WBC Urine 0-4 /hpf (0-5)
[2023-08-09 11:12] LABS: Alanine Aminotransferase 13 U/L (0-33); Albumin Level 3.6 g/dL (3.5-5.2); Alkaline Phosphatase 52 U/L (35-105); Anion Gap 11.6 (5-19); Aspartate Amino Transferase 13 U/L (0-32); Blood Urea Nitrogen 13 mg/dL (6-20); Carbon Dioxide 29 mmol/L (22-29); Chloride 103 mmol/L (98-107); Glomerular Filtration Rate 117.4 mL/min (90-130); Glucose 111 mg/dL (65-115); Lipase 19 U/L (13-60); Osmolality Calculated 289 mOsm/kg (285-295); Potassium 4.6 mmol/L (3.5-5.1); Sodium 139 mmol/L (136-145); Thyroid Stimulating Hormone 0.17 uIU/mL (0.27-4.20); Total Bilirubin 0.5 mg/dL (0.15-1.2); Total Protein 6.6 g/dL (6.6-8.7)
[2023-08-09 11:16] LABS: D Dimer 0.45 ug/mLFEU (0-0.59)
== END 2023-08-09 11:57 | disposition home or self-care (01) ==
PROVIDERS: Emergency Provider Family Medicine
DX: R00.2 Palpitations (principal); R00.0 Tachycardia, unspecified
CPT/HCPCS: 36415; 71045; 80053; 81001; 83690; 84443; 84703; 85025; 85378; 93005; 99285

== ENCOUNTER 2023-11-24 19:46 | Emergency (ER) | payer MEDICAID, SELFPAY ==
[2023-11-24 20:13] VITALS: BP 100/65; PULSE 72; RESP 15; TEMP 36.8; O2SAT 100
--- NOTE | 2023-11-24 20:23 | CTR_ITS ---
PROCEDURE INFORMATION: Exam: CT Head Without Contrast Exam date and time: 11/24/2023 8:43 PM Age: 28 years old Clinical indication: Pain; Headache; Additional info: TEMPLETON TECHNIQUE: Imaging protocol: Computed tomography of the head without contrast. Radiation optimization: All CT scans at this facility use at least one of these dose optimization techniques: automated exposure control; mA and/or kV adjustment per patient size (includes targeted exams where dose is matched to clinical indication); or iterative reconstruction. COMPARISON: No relevant prior studies available. RADIATION DOSE METRICS: Total DLP (mGy-cm): 1003.4 FINDINGS: Brain: No evidence of intra-axial or extra-axial hemorrhage. No mass effect or midline shift. Blake-white differentiation is maintained. Basilar cisterns are patent. Cerebral ventricles: No hydrocephalus. Paranasal sinuses: The visualized paranasal sinuses are well aerated. Mastoid air cells: The visualized mastoids and middle ears are clear. Bones/joints: The visualized calvarium and bony orbits are intact. Soft tissues: No gross soft tissue abnormality. CT/CT head wo con* [id number] IMPRESSION: 1. No acute intracranial abnormality.
[2023-11-24] MEDS: promethazine 25 mg/mL SDV 1 mL IM (20:27)
--- NOTE | 2023-11-24 20:28 | ED_ITS ---
HPI - Headache General: Chief Complaint: Headache Stated Complaint: headache Time Seen by Provider: 11/24/23 20:16 Source: patient Mode of arrival: ambulatory Limitations: no limitations History of Present Illness: 28-year-old female states she started martinez ving a headache roughly an hour ago. States it is in the left posterior portion states its tender to touch as well she rates her headache a 6 out of 10 denies any history of migraines denies any nausea or vomiting denies any fever denies any neck stiffness. Associated symptoms: Deny chest pain, fever(s), nausea, rash or vomiting Review of Systems Const: Denies: fever(s), chills, body aches or change in appetite Eyes: Denies: blurry vision ENMT: Denies: throat pain or dental pain Card: Denies: chest pain Resp: Denies: dyspnea GI: Denies: abdominal pain, nausea, vomiting or diarrhea Musc: Denies: neck pain or back pain Skin/Breast: Denies: rash Neuro: Reports: headache(s) PFSH ED PFSH: Medical History Nicotine dependence, other tobacco product, uncomplicated Nicotine dependence, cigarettes, uncomplicated Cannabis dependence with current use Post-traumatic stress disorder, chronic Psychiatric care SVT (supraventricular tachycardia) Methamphetamine use disorder, severe Multiple personality disorder Surgical History No pertinent past surgical history Physical Exam Const: COMMON NORMALS: no acute distress, patient oriented x3 and healthy appearing HENMT: COMMON NORMALS: normocephalic and atraumatic HEAD & SCALP: normocephalic and atraumatic Eye: COMMON NORMALS: Equal, round and reactive pupils present and EOMs intact bilaterally PUPIL: Yes Equal, round and reactive pupils present Neck/C-Spine: COMMON NORMALS: full ROM, supple and no meningeal signs Chest: COMMONS NORMALS: normal inspection of the chest Resp: COMMON NORMALS: normal respiratory effort Cardio: COMMON NORMALS: regular rate, regular rhythm and No murmurs present (Cardio) RATE: regular rate RHYTHM: regular rhythm GI: INSPECTION: Yes normal to inspection Extremity: COMMON NORMALS: normal to inspection Neuro: COMMON NORMALS: patient oriented x3, moves all extremities and no focal motor deficits MENINGEAL SIGNS: Yes no meningeal signs Psych: COMMON NORMALS: mental status grossly normal, Normal thought process present and cooperative THOUGHT PROCESS: Normal thought process present Skin: COMMON NORMALS: no rashes or lesions noted and no wounds GENERAL SKIN EXAM: no rashes or lesions noted Course Vital Signs: Vital signs: Vital Signs Temperature 98.3 F 11/24/23 20:13 Pulse Rate 77 11/24/23 21:13 Respiratory Rate 16 11/24/23 21:13 Blood Pressure 105/45 11/24/23 21:13 Pulse Oximetry 98 11/24/23 21:13 Oxygen Delivery Me thod Room Air 11/24/23 20:13 MDM - Headache Medical Decision Making Patient presents here with headache is likely tension headache head CT here is normal she has no signs of meningitis no signs of subarachnoid hemorrhage. She is stable for discharge she feels improved she is to follow-up with her PCP and return if worsening. Medical Records I reviewed the patient's medical records. Lab Data I reviewed the patient's lab results. Radiology Impressions Head CT 11/24/23 20:23 IMPRESSION: 1. No acute intracranial abnormality. All radiology interpretation(s) finalized by discharge Discharge Plan Discharge Patient Disposition: Home Clinical Impression: Headache Condition: Stable Prescriptions: No Action acetaminophen 500 mg Tablet 1,000 mg PO Q6H PRN (Reason: Pain) albuterol sulfate 90 mcg/actuation Hfa Aerosol Inhaler 2 puff INHALATION QID PRN (Reason: Shortness Of Breath) fluoxetine 10 mg Capsule 10 mg PO DAILY clonidine HCl 0.1 mg Tablet 0.1 mg PO TID PRN (Reason: Anxiety) Vistaril 50 mg Capsule 50 mg PO TID PRN (Reason: Anxiety) olanzapine 10 mg Tablet 10 mg PO QPM baclofen 10 mg Tablet 10 mg PO TID PRN (Reason: Pain) prazosin 2 mg Capsule 4 mg PO QPM naltrexone 50 mg Tablet 50 mg PO DAILY Rx Instructions: Take one tablet daily in AM Discharge Orders: Discharge ED (Routine); Ordered 11/24/23 Ordered By: Ciera Avery Discharge Diet: Advance as tolerated Discharge Activity: Resume usual activity Patient Instructions: General Headache (ED) Coding Level of Care Code ED Associate Software Application Engineer for Audra Sequeira
[2023-11-24] MEDS: ketorolac 60 mg/2 mL INJ IM (20:29)
[2023-11-24 21:13] VITALS: BP 105/45; PULSE 77; RESP 16; O2SAT 98
[2023-11-24] MEDS: HYDROcodone-acetaminophen 7.5-325 mg Tablet 1 TAB PO (21:13)
== END 2023-11-24 21:33 | disposition home or self-care (01) ==
PROVIDERS: Emergency Provider Emergency Medicine
DX: R51.9 Headache, unspecified (principal)
CPT/HCPCS: 70450; 96372; 99284; J1885; J2550

== ENCOUNTER → 2023-12-10 15:54 | Outpatient (BNVA) | payer MEDICAID, SELFPAY | PROVIDERS: Visit Provider Emergency Medicine | DX: J02.9 Acute pharyngitis, unspecified (principal); R05.9 Cough, unspecified | CPT/HCPCS: 87071; 87400; 87880 ==

== ENCOUNTER 2023-12-13 16:19 | Emergency (ER) | payer MEDICAID, SELFPAY ==
[2023-12-13 16:21] VITALS: BP 103/57; PULSE 93; RESP 16; TEMP 36.7; O2SAT 98
--- NOTE | 2023-12-13 16:30 | ECG_ITS ---
[facility] Test Date: 2023-12-13 Pat Name: Matt Sims Department: Room: Gender: Female Appeals Analyst: : 1995 Requested By: John Gaming Order Number: [id number] Gagan MD: Casey Nickerson M.D. Measurements Intervals [place] Rate: 95 P: 54 [place]: 136 QRS: 28 QRSD: 84 T: 18 QT: 378 QTc: 476 Interpretive Statements SINUS RHYTHM POSSIBLE LEFT ATRIAL ENLARGEMENT [-0.1mV P-WAVE IN V1/V2] LOW QRS VOLTAGE IN PRECORDIAL LEADS [QRS DEFLECTION < 1.0 mV IN CHEST LEADS] Compared to ECG 08/09/2023 10:05:50 Low QRS voltage now present Sinus tachycardia no longer present Short [place] interval no longer present Electronically Signed On 12-14-2023 8:13:01 EQUAL OPPORTUNITY REPRESENTATIVE by Casey Nickerson M.D. [id number]
--- NOTE | 2023-12-13 16:32 | XRR_ITS ---
PROCEDURE INFORMATION: Exam: XR Chest Exam date and time: 12/13/2023 5:14 PM Age: 28 years old Clinical indication: Cough; Additional info: Cough/congestion TECHNIQUE: Imaging protocol: Radiologic exam of the chest. Views: 2 views. COMPARISON: CR XR chest 1V portable [id number] 08/09/2023 10:17 AM FINDINGS: Lungs: Suboptimal pulmonary expansion with associated accentuation of bronchovascular markings. No significant pulmonary pathology. Pleural spaces: No pleural effusion. Heart/Mediastinum: Cardiomediastinal contours unremarkable given technique. Bones/joints: No significant bony pathology. XR/XR chest 2V* [id number] IMPRESSION: No acute pathology or significant interval change.
--- NOTE | 2023-12-13 16:51 | W.ED.CHESTPA ---
HPI - Chest Pain General: Chief Complaint: Chest Pain Stated Complaint: chest pains, right arm numb Time Seen by Provider: 12/13/23 16:32 History of Present Illness: 28-year-old female presents to the emergency department with complaints of upper airway congestion. She states she does have a nonproductive cough over the previous 3 days. She states today she started feeling some sharp stabbing pain to the left side of her chest with her cough or deep breaths. She denies nausea vomiting fevers chills or night sweats. She does endorse recent sick contacts with similar illness. She states her current sharp stabbing chest pain is a 3 out of 10 at present. She states she does have a history of SVT. It does appear that the patient was seen in an urgent care on 12/10/2023 and was tested negative for influenza a and influenza B and negative for strep pharyngitis. Associated symptoms: Reports fever(s) Review of Systems General: Reports: 10 or more systems reviewed and unremarkable except in HPI and below Const: Reports: fever(s) and fatigue ENMT: Reports: throat pain Card: Reports: chest pain Resp: Reports: non-productive cough and pain on inspiration [facility] ED PFSH: Medical History Nicotine dependence, other tobacco product, uncomplicated Nicotine dependence, cigarettes, uncomplicated Cannabis dependence with current use Post-traumatic stress disorder, chronic Psychiatric care SVT (supraventricular tachycardia) Methamphetamine use disorder, severe Multiple personality disorder Surgical History No pertinent past surgical history Physical Exam Const: COMMON NORMALS: no acute distress, patient oriented x3 and alert HENMT: COMMON NORMALS: normocephalic, atraumatic, TM's normal bilaterally and moist oral mucous membranes HEAD & SCALP: normocephalic and atraumatic TYMPANIC MEMBRANE: TM's normal bilaterally THROAT: posterior oropharynx normal (Erythema, no tonsillar exudate) Eye: COMMON NORMALS: Equal, round and reactive pupils present and EOMs intact bilaterally PUPIL: Yes Equal, round and reactive pupils present Neck/C-Spine: COMMON NORMALS: full ROM and supple Resp: COMMON NORMALS: normal respiratory effort and clear to auscultation bilaterally AUSCULTATION: clear to auscultation bilaterally Cardio: COMMON NORMALS: regular rate, regular rhythm, S1 normal heart sound present, S2 normal heart sound present and No murmurs present (Cardio) RATE: regular rate RHYTHM: regular rhythm HEART SOUNDS: S1 normal heart sound present and S2 normal heart sound present GI: COMMON NORMALS: Normal to inspection, nondistended, normoactive bowel sounds present, Soft to palpation and non-tender PALPATION: Yes Soft to palpation Extremity: COMMON NORMALS: normal to inspection, full ROM and capillary refill normal Neuro: COMMON NORMALS: patient oriented x3 SENSORIUM/ORIENTATION: Yes alert Psych: COMMON NORMALS: mental status grossly normal, Normal thought process present and cooperative THOUGHT PROCESS: Normal thought process present Skin: COMMON NORMALS: no rashes or lesions noted GENERAL SKIN EXAM: no rashes or lesions noted Course Vital Signs: Vital signs: Vital Signs Temperature 98.1 F 12/13/23 16:21 Pulse Rate 93 12/13/23 16:21 Respiratory Rate 16 12/13/23 16:21 Blood Pressure 103/57 12/13/23 16:21 Pulse Oximetry 98 12/13/23 16:21 Oxygen Delivery Me thod Room Air 12/13/23 16:21 MDM - Chest Pain Medical Decision Making Physical exam completed and documented I will obtain a CBC CMP chest x-ray urinalysis and twelve-lead EKG. Differential diagnosis includes upper respiratory viral illness, pneumonia, costochondritis, pleurisy. Medical Records I reviewed the patient's medical records. Lab Data I reviewed the patient's lab results. 12/13/23 16:44 12/13/23 16:44 Radiology Impressions Chest X-Ray 12/13/23 16:32 IMPRESSION: No acute pathology or significant interval change. Laboratory Results WBC 6.35 10^3/uL (3.29-11.43) 12/13/23 16:44 RBC 4.03 10^6/uL (3.85-5.65) 12/13/23 16:44 Hgb 10.20 g/dL (11.27-16.99) L 12/13/23 16:44 Hct 34.0 % (36-47) L 12/13/23 16:44 MCV 84.4 fl (85-98) L 12/13/23 16:44 MCH 25.3 pg (27-33) L 12/13/23 16:44 MCHC 30.0 g/dL (30-55) 12/13/23 16:44 RDW 16.5 % (12.1-15.1) H 12/13/23 16:44 Plt Count 211 10^3/cmm (157-399) 12/13/23 16:44 MPV 11.4 fL (7.4-10.4) H 12/13/23 16:44 Neut % (Auto) 66.8 % 12/13/23 16:44 Lymph % (Auto) 19.4 % 12/13/23 16:44 [place] % (Auto) 11.2 % 12/13/23 16:44 Eos % (Auto) 1.3 % 12/13/23 16:44 Baso % (Auto) 0.8 % 12/13/23 16:44 Neut # (Auto) 4.25 10^3/uL (1.8-7.7) 12/13/23 16:44 Lymph # (Auto) 1.2 10^3/uL (0.8-4.8) 12/13/23 16:44 [place] # (Auto) 0.7 10^3/uL (0.2-0.9) 12/13/23 16:44 Eos # (Auto) 0.1 10^3/uL (0.0-0.8) 12/13/23 16:44 Baso # (Auto) 0.1 10^3/uL (0.0-0.1) 12/13/23 16:44 Nucleated RBC % (auto) 0 % 12/13/23 16:44 Nucleated RBCs # 0.0 /100WBC 12/13/23 16:44 Sodium 139 mmol/L (136-145) 12/13/23 16:44 Potassium 3.5 mmol/L (3.5-5.1) 12/13/23 16:44 Chloride 106 mmol/L (98-107) 12/13/23 16:44 Carbon Dioxide 26 mmol/L (22-29) 12/13/23 16:44 Anion Gap 10.5 (5-19) 12/13/23 16:44 BUN 11 mg/dL (6-20) 12/13/23 16:44 Creatinine 0.6 mg/dL (0.5-0.9) 12/13/23 16:44 GFR Calculation 117.4 mL/min (90-130) 12/13/23 16:44 Glucose 76 mg/dL (65-115) 12/13/23 16:44 Calculated Osmolality 286 mOsm/kg (285-295) 12/13/23 16:44 Calcium 8.3 mg/dL (8.5-10.5) L 12/13/23 16:44 Total Bilirubin 0.5 mg/dL (0.15-1.2) 12/13/23 16:44 AST 16 U/L (0-32) 12/13/23 16:44 ALT 14 U/L (0-33) 12/13/23 16:44 Alkaline Phosphatase 48 U/L (35-105) 12/13/23 16:44 Total Protein 6.6 g/dL (6.6-8.7) 12/13/23 16:44 Albumin 3.7 g/dL (3.5-5.2) 12/13/23 16:44 Globulin 2.9 g/dL (1.3-4.6) 12/13/23 16:44 HCG, Qual Negative (Negative) 12/13/23 16:40 Urine Color Yellow (Yellow) 12/13/23 16:40 Urine Appearance Sl hazy (CLEAR) A 12/13/23 16:40 Urine pH 5 (5-7) 12/13/23 16:40 Ur Specific [place] 1.020 (1.005-1.030) 12/13/23 16:40 Urine Protein Neg (Negative) 12/13/23 16:40 Urine Glucose (UA) Norm (Normal) 12/13/23 16:40 Urine Ketones Negative (Negative) 12/13/23 16:40 Urine Blood Neg (Negative) 12/13/23 16:40 Urine Nitrate Negative (Negative) 12/13/23 16:40 Urine Bilirubin Neg (Negative) 12/13/23 16:40 Urine Urobilinogen Norm mg/dL (Negative) 12/13/23 16:40 Ur Leukocyte Esterase Negative (Negative) 12/13/23 16:40 Urine RBC None /hpf (0-2) 12/13/23 16:40 Urine WBC Rare /hpf (0-5) 12/13/23 16:40 Ur Squamous Epith Cells 5-10 /hpf (0-5) H 12/13/23 16:40 Amorphous Sediment Not Reportable 12/13/23 16:40 Urine Bacteria Trace /hpf (NONE) 12/13/23 16:40 Urine Mucus 1+ /hpf 12/13/23 16:40 Influenza Type A Ag negative (Negative) 12/13/23 17:05 Influenza Type B Ag negative (Negative) 12/13/23 17:05 SARS-CoV-2 Ag (Rapid) negative (Negative) 12/13/23 17:05 Group A Strep Rapid Negative (Negative) 12/13/23 17:05 All radiology interpretation(s) finalized by discharge EKG Data EKG 1: Interpretation: Twelve-lead EKG obtained at 1624 and reviewed at 1624 demonstrates sinus rhythm with a ventricular rate of 95 bpm, [place] interval 136, QRS duration 84 QT 373 QTc 431 at present there is no ST elevation or depression to demonstrate acute ischemia or infarction. Discharge Plan Discharge Patient Disposition: Home Clinical Impression: Viral upper respiratory illness, Atypical chest pain, Acute viral pharyngitis Cough Qualifiers: Cough type: acute Qualified Code(s): R05.1 - Acute cough Condition: Stable Prescriptions: New benzonatate 200 mg capsule 200 mg PO TID Qty: 30 0RF guaifenesin 1,200 mg tablet extended release 12hr 1,200 mg PO BID Qty: 14 0RF No Action oseltamivir [Tamiflu] 75 mg capsule 75 mg PO DAILY 5 Days Qty: 10 0RF fluticasone propionate [Flonase Allergy Relief] 50 mcg/actuation spray,suspension 2 spray intranasal DAILY Qty: 16 0RF Rx Instructions: administer into each nostril ibuprofen 600 mg tablet 600 mg PO TID PRN (Reason: pain) Qty: 30 0RF acetaminophen 500 mg Tablet 1,000 mg PO Q6H PRN (Reason: Pain) albuterol sulfate 90 mcg/actuation Hfa Aerosol Inhaler 2 puff INHALATION QID PRN (Reason: Shortness Of Breath) fluoxetine 10 mg Capsule 10 mg PO DAILY clonidine HCl 0.1 mg Tablet 0.1 mg PO TID PRN (Reason: Anxiety) olanzapine 10 mg Tablet 10 mg PO QPM naltrexone 50 mg Tablet 50 mg PO DAILY Rx Instructions: Take one tablet daily in AM Discharge Orders: Discharge ED (Routine); Ordered 12/13/23 Ordered By: John Gaming Discharge Diet: Usual diet Discharge Activity: Resume usual activity Patient Instructions: Opioid Safety, Pain Management Activity Restrictions/Additional Instructions: Activity Restrictions/Additional Instructions: Thank you for choosing [facility] for your healthcare needs today. Please realize that you were seen in the Emergency Department and that we are providing you with an emergency medical screening exam and this may not be a complete and all inclusive of all the testing and or medical work-up that you may need to determine your ailment or severity of your illness. It is very important that you follow-up as instructed with your Primary care provider or Specialist for additional evaluation and to discuss your medical treatment plan. Coding Level of Care Code ED Mobile Application Engineer for Audra Sequeira
[2023-12-13 16:56] LABS: Basophils # 0.1 10^3/uL (0.0-0.1); Basophils % 0.8 %; Eosinophils # 0.1 10^3/uL (0.0-0.8); Eosinophils % 1.3 %; Lymphocytes # 1.2 10^3/uL (0.8-4.8); Lymphocytes % 19.4 %; Mean Corpuscular Hemoglobin 25.3 pg (27-33); Mean Corpuscular Volume 84.4 fl (85-98); Mean Platelet Volume 11.4 fL (7.4-10.4); Monocytes # 0.7 10^3/uL (0.2-0.9); Monocytes % 11.2 %; Neutrophils # 4.25 10^3/uL (1.8-7.7); Neutrophils % 66.8 %; Nucleated Red Blood Cells % 0 %; Platelet Count 211 10^3/cmm (157-399); Red Blood Count 4.03 10^6/uL (3.85-5.65); Red Cell Distribution Width 16.5 % (12.1-15.1); White Blood Count 6.35 10^3/uL (3.29-11.43)
[2023-12-13 17:04] LABS: HCG Qualitative Urine. Negative (Negative)
[2023-12-13 17:13] LABS: Alanine Aminotransferase 14 U/L (0-33); Albumin Level 3.7 g/dL (3.5-5.2); Alkaline Phosphatase 48 U/L (35-105); Anion Gap 10.5 (5-19); Aspartate Amino Transferase 16 U/L (0-32); Blood Urea Nitrogen 11 mg/dL (6-20); Calcium 8.3 mg/dL (8.5-10.5); Carbon Dioxide 26 mmol/L (22-29); Chloride 106 mmol/L (98-107); Globulin 2.9 g/dL (1.3-4.6); Glomerular Filtration Rate 117.4 mL/min (90-130); Glucose 76 mg/dL (65-115); Osmolality Calculated 286 mOsm/kg (285-295); Potassium 3.5 mmol/L (3.5-5.1); Sodium 139 mmol/L (136-145); Total Bilirubin 0.5 mg/dL (0.15-1.2); Total Protein 6.6 g/dL (6.6-8.7)
[2023-12-13 17:18] LABS: Rapid Strep A Test Negative (Negative)
[2023-12-13 17:25] LABS: Influenza A by IFA negative (Negative); Influenza B by IFA negative (Negative)
[2023-12-13 17:32] LABS: Bilirubin Urine Neg (Negative); Blood Urine Neg (Negative); Glucose Urine UA Norm (Normal); Ketones Urine Negative (Negative); Leukocyte Esterase Urine Negative (Negative); Nitrate Urine Negative (Negative); Protein Urine Neg (Negative); Urine Appearance SL Hazy (CLEAR); Urine Color Yellow (Yellow); Urobilinogen Urine Norm (Negative); pH Urine 5 (5-7)
[2023-12-13 17:37] LABS: Add Urine Culture? No; Bacteria Urine TRACE /hpf; Mucus Urine 1+ /hpf; WBC Urine RARE /hpf (0-5)
[2023-12-13 18:05] LABS: SARS Covid-2 Antigen negative (Negative)
[2023-12-13 18:18] VITALS: BP 102/64; PULSE 72; O2SAT 98
== END 2023-12-13 18:21 | disposition home or self-care (01) ==
PROVIDERS: Emergency Provider Internal Medicine
DX: J06.9 Acute upper respiratory infection, unspecified (principal); R07.89 Other chest pain; R05.1 Acute cough; J02.8 Acute pharyngitis due to other specified organisms; Z11.52 Encounter for screening for COVID-19
CPT/HCPCS: 36415; 71046; 80053; 81001; 81025; 85025; 87081; 87426; 87804; 87880; 93005; 99285

== ENCOUNTER → 2024-01-20 10:52 | Outpatient (BNVA) | payer OTHER, SELFPAY | PROVIDERS: Visit Provider Nurse Practitioner Psychiatric/Mental Health | DX: Z79.899 Other long term (current) drug therapy (principal) | CPT/HCPCS: 80053; 80061; 80307; 83036 ==

== ENCOUNTER 2024-01-31 17:10 | Emergency (ER) | payer MEDICAID, SELFPAY ==
--- NOTE | 2024-01-31 17:13 | ECG_ITS ---
[facility] Test Date: 2024-01-31 Pat Name: Matt Sims Department: Room: Gender: Female Second Miller: : 1995 Requested By: Clara Garcia Order Number: [id number] Gagan MD: Susan Garcia M.D. Measurements Intervals [place] Rate: 98 P: 70 [place]: 135 QRS: 62 QRSD: 84 T: 36 QT: 357 QTc: 458 Interpretive Statements SINUS RHYTHM NONSPECIFIC T-WAVE ABNORMALITY Compared to ECG 12/13/2023 16:24:38 T-wave abnormality now present Electronically Signed On 01-31-2024 21:28:43 CDT by Susan Garcia M.D. [id number]
--- NOTE | 2024-01-31 17:13 | XRR_ITS ---
PROCEDURE INFORMATION: Exam: XR Chest Exam date and time: 01/31/2024 5:23 PM Age: 28 years old Clinical indication: Pain; Chest pressure; Additional info: Chest pain TECHNIQUE: Imaging protocol: Radiologic exam of the chest. Views: 1 view. COMPARISON: CR XR chest 2V* [id number] 12/13/2023 5:14 PM FINDINGS: Lungs: Unremarkable. No consolidation or mass. Pleural spaces: Unremarkable. No pleural effusion. No pneumothorax. Heart/Mediastinum: Unremarkable. No cardiomegaly. Bones/joints: Unremarkable. XR/XR chest 1V portable [id number] IMPRESSION: No acute findings.
[2024-01-31 17:15] VITALS: BP 95/60; PULSE 87; RESP 16; TEMP 36.7; O2SAT 98
--- NOTE | 2024-01-31 17:34 | ED_ITS ---
HPI - Chest Pain 2 General: Chief Complaint: Chest Pain Stated Complaint: chest pain, dizzy Time Seen by Provider: 01/31/24 17:12 Source: patient Mode of arrival: ambulatory Limitations: no limitations History of Present Illness: Patient is a 28-year-old female presents to ED today with complaint of chest pain and dizziness. Patient states she has had several changes to her medications recently including stopping her fluoxetine and olanzapine cold turkey on 01/17 and being placed on naltrexone, prazosin, and paliperidone. She states these medication adjustments were performed by her provider at [facility]. Patient states she does not know if her symptoms are related to the withdrawal from her fluoxetine/olanzapine or side effects from her new medications. Patient has not had any passing out episodes. She denies any shortness of breath or difficulty breathing. No known cardiac or pulmonary history. She arrives in no acute distress. Blood pressure soft upon arrival although looking at previous blood pressures it looks like she is always on the lower end. MD complaint: chest pain and other (dizziness) Onset (ago): day(s) Timing of current episode: episodic Prior episodes: No Pain radiation: none Severity: mild Relieving factors: nothing Exacerbating factors: nothing Context: new medications Associated symptoms: Deny abdominal pain, dyspnea, fever(s), nausea, palpitations, syncope or vomiting Treatment prior to arrival: none Risk Factors: Coronary artery disease risk factors: none Thoracic aortic dissection risk factors: none Review of Systems 2 Const: Denies: fever(s), chills, body aches, fatigue or malaise Eyes: Denies: change in vision, blurry vision, photophobia, floaters or seeing flashes Card: Reports: chest pain; Denies: palpitations, irregular heart rhythm, edema, swelling of feet/ankles, lightheadedness, syncope, pre-syncope, dyspnea on exertion, orthopnea, leg pain with exertion or acrocyanosis Resp: Denies: dyspnea, productive cough or pain on inspiration GI: Denies: abdominal pain, nausea, vomiting, heartburn or diarrhea : Denies: dysuria Musc: Denies: neck pain, back pain, extremity pain, extremity swelling or joint pain Skin/Breast: Denies: rash Neuro: Reports: dizziness; Denies: headache(s), numbness in extremities, weakness in extremities or sensory changes PFS ED 2 PFSH: Medical History Nicotine dependence due to vaping tobacco product Non-suicidal self harm as coping mechanism Attention-deficit hyperactivity disorder, predominantly hyperactive type Diagnosed as a child Schizoaffective disorder, bipolar type Nicotine dependence, other tobacco product, uncomplicated Nicotine dependence, cigarettes, uncomplicated Post-traumatic stress disorder, chronic Psychiatric care SVT (supraventricular tachycardia) Methamphetamine use disorder, severe Last use 09/01/23 IV Surgical History No pertinent past surgical history Physical Exam 2 Const: COMMON NORMALS: no acute distress, patient oriented x3, no limitations, alert and well nourished GENERAL APPEARANCE: cooperative O RIENTATION/CONSCIOUSNESS: Yes awake, Yes oriented to person, Yes oriented to place and Yes oriented to time HENMT: COMMON NORMALS: normocephalic and atraumatic HEAD & SCALP: n ormocephalic and atraumatic Neck/C-Spine: COMMON NORMALS: full ROM, no lymphadenopathy, supple and no meningeal signs Chest: COMMONS NORMALS: normal inspection of the chest and normal palpation of entire chest wall Resp: COMMON NORMALS: normal respiratory effort and clear to auscultation bilaterally AUSCULTATION: clear to auscultation bilaterally Cardio: COMMON NORMALS: regular rate and regular rhythm RATE: regular rate RHYTHM: regular rhythm GI: COMMON NORMALS: Normal to inspection, nondistended, normoactive bowel sounds present, Soft to palpation, non-tender, No hepatosplenomegaly present and no masses PALPATION: Yes Soft to palpation and Yes No hepatosplenomegaly present Extremity: COMMON NORMALS: normal to inspection GENERAL: Yes normal exam except as noted Neuro: CRISELDA COMA SCALE: document GCS findings Criselda coma scale eye opening: Spontaneous Criselda coma scale verbal response: Orientated Criselda coma scale motor response: [place]bey commands [place] coma scale total score: 15 COMMON NORMALS: patient oriented x3, moves all extremities, no focal motor deficits, no sensory deficits noted and gait normal SENSORIUM/ORIENTATION: Yes alert, Yes oriented to person, Yes oriented to place and Yes oriented to time MENINGEAL SIGNS: Yes no meningeal signs Skin: COMMON NORMALS: no rashes or lesions noted GENERAL SKIN EXAM: no rashes or lesions noted Course 2 Vital Signs: Vital signs: Vital Signs Temperature 98.0 F 01/31/24 17:15 Pulse Rate 72 01/31/24 18:58 Respiratory Rate 15 01/31/24 18:19 Blood Pressure 95/71 01/31/24 18:19 Pulse Oximetry 99 01/31/24 18:58 Oxygen Delivery Me thod Room Air 01/31/24 18:58 MDM - Chest Pain Medical Decision Making Patient is a 28-year-old here with chest pain and dizziness. Blood pressure soft upon arrival however looking at previous blood pressure readings over the past year she is always on the lower end. I would think symptoms are less likely due to stopping her fluoxetine/olanzapine as she is now 12 days after this. Symptoms especially the blood pressure certainly could be secondary to her prazosin and paliperidone. Recommend speaking to her prescribing provider about side effects and any changes that could be made. Blood work here overall is unremarkable. Baseline troponin is normal. CXR showing no acute findings. Her EKG showing no abnormal arrhythmias or ischemia. Lab Data 01/31/24 17:47 01/31/24 17:47 Radiology Impressions Chest X-Ray 01/31/24 17:13 IMPRESSION: No acute findings. Laboratory Results WBC 8.45 10^3/uL (3.29-11.43) 01/31/24 17:47 RBC 4.16 10^6/uL (3.85-5.65) 01/31/24 17:47 Hgb 11.00 g/dL (11.27-16.99) L 01/31/24 17:47 Hct 35.6 % (36-47) L 01/31/24 17:47 MCV 85.6 fl (85-98) 01/31/24 17:47 MCH 26.4 pg (27-33) L 01/31/24 17:47 MCHC 30.9 g/dL (30-55) 01/31/24 17:47 RDW 15.2 % (12.1-15.1) H 01/31/24 17:47 Plt Count 215 10^3/cmm (157-399) 01/31/24 17:47 MPV 12.0 fL (7.4-10.4) H 01/31/24 17:47 Neut % (Auto) 71.8 % 01/31/24 17:47 Lymph % (Auto) 17.4 % 01/31/24 17:47 Hayes % (Auto) 8.8 % 01/31/24 17:47 Eos % (Auto) 1.2 % 01/31/24 17:47 Baso % (Auto) 0.6 % 01/31/24 17:47 Neut # (Auto) 6.07 10^3/uL (1.8-7.7) 01/31/24 17:47 Lymph # (Auto) 1.5 10^3/uL (0.8-4.8) 01/31/24 17:47 Hayes # (Auto) 0.7 10^3/uL (0.2-0.9) 01/31/24 17:47 Eos # (Auto) 0.1 10^3/uL (0.0-0.8) 01/31/24 17:47 Baso # (Auto) 0.1 10^3/uL (0.0-0.1) 01/31/24 17:47 Nucleated RBC % (auto) 0 % 01/31/24 17:47 Nucleated RBCs # 0.0 /100WBC 01/31/24 17:47 Sodium 142 mmol/L (136-145) 01/31/24 17:47 Potassium 4.0 mmol/L (3.5-5.1) 01/31/24 17:47 Chloride 105 mmol/L (98-107) 01/31/24 17:47 Carbon Dioxide 28 mmol/L (22-29) 01/31/24 17:47 Anion Gap 13.0 (5-19) 01/31/24 17:47 BUN 17 mg/dL (6-20) 01/31/24 17:47 Creatinine 0.7 mg/dL (0.5-0.9) 01/31/24 17:47 GFR Calculation 98.3 mL/min (90-130) 01/31/24 17:47 Glucose 77 mg/dL (65-115) 01/31/24 17:47 Calculated Osmolality 294 mOsm/kg (285-295) 01/31/24 17:47 Calcium 8.9 mg/dL (8.5-10.5) 01/31/24 17:47 Total Bilirubin 0.5 mg/dL (0.15-1.2) 01/31/24 17:47 AST 14 U/L (0-32) 01/31/24 17:47 ALT 9 U/L (0-33) 01/31/24 17:47 Alkaline Phosphatase 58 U/L (35-105) 01/31/24 17:47 Troponin T Baseline 7 ng/L (0-10) 01/31/24 17:47 Total Protein 6.2 g/dL (6.6-8.7) L 01/31/24 17:47 Albumin 3.9 g/dL (3.5-5.2) 01/31/24 17:47 Globulin 2.3 g/dL (1.3-4.6) 01/31/24 17:47 HCG, Qual Negative (Negative) 01/31/24 17:47 All radiology interpretation(s) finalized by discharge Discharge Plan Discharge Patient Disposition: Home Clinical Impression: Atypical chest pain, Dizziness Condition: Stable Prescriptions: No Action fluticasone propionate [Flonase Allergy Relief] 50 mcg/actuation spray,suspension 2 spray intranasal DAILY Qty: 16 0RF Rx Instructions: administer into each nostril ibuprofen 600 mg tablet 600 mg PO TID PRN (Reason: pain) Qty: 30 0RF paliperidone 6 mg tablet extended release 24hr 6 mg PO .7 pm Qty: 30 1RF Rx Instructions: Take one tablet at 7 pm naltrexone 50 mg tablet 50 mg PO .morning Qty: 30 3RF Rx Instructions: Take one tablet every morning prazosin 2 mg capsule 2 mg PO BEDTIME Qty: 30 2RF Rx Instructions: Take one capsule at bedtime acetaminophen 500 mg Tablet 1,000 mg PO Q6H PRN (Reason: Pain) albuterol sulfate 90 mcg/actuation Hfa Aerosol Inhaler 2 puff INHALATION QID PRN (Reason: Shortness Of Breath) Discharge Orders: Discharge ED (Routine); Ordered 01/31/24 Ordered By: Clara Garcia Activity Restrictions/Additional Instructions: As we discussed I would like you to speak to your prescribing provider in regards to your symptoms and the medications that you recently were placed on. As we discussed, especially the prazosin can cause low blood pressure and dizziness. Some of the other medications can have side effects of dizziness as well. Please speak to them in regards to any changes that can potentially be made. Coding Level of Care Code ED Security Incident Response Engineer for Audra Sequeira
[2024-01-31 18:10] VITALS: BP 104/74; BP 93/59; BP 95/71; PULSE 75; PULSE 84; PULSE 86
[2024-01-31 18:19] VITALS: BP 95/71; PULSE 87; RESP 15; O2SAT 97
[2024-01-31 18:27] LABS: Basophils # 0.1 10^3/uL (0.0-0.1); Basophils % 0.6 %; Eosinophils # 0.1 10^3/uL (0.0-0.8); Eosinophils % 1.2 %; Hematocrit 35.6 % (36-47); Lymphocytes # 1.5 10^3/uL (0.8-4.8); Lymphocytes % 17.4 %; Mean Corpuscular HGB Conc 30.9 g/dL (30-55); Mean Corpuscular Hemoglobin 26.4 pg (27-33); Mean Corpuscular Volume 85.6 fl (85-98); Monocytes # 0.7 10^3/uL (0.2-0.9); Monocytes % 8.8 %; Neutrophils # 6.07 10^3/uL (1.8-7.7); Neutrophils % 71.8 %; Nucleated Red Blood Cells % 0 %; Platelet Count 215 10^3/cmm (157-399); Red Blood Count 4.16 10^6/uL (3.85-5.65); Red Cell Distribution Width 15.2 % (12.1-15.1); White Blood Count 8.45 10^3/uL (3.29-11.43)
[2024-01-31 18:48] LABS: HCG, Serum Qual Negative (Negative)
[2024-01-31 18:58] VITALS: PULSE 72; O2SAT 99
[2024-01-31 18:58] LABS: Troponin(5th) Baseline 7 ng/L (0-10)
--- NOTE | 2024-01-31 18:59 | PC.NURSE ---
Report to STEVEN Block
[2024-01-31 19:02] LABS: Alanine Aminotransferase 9 U/L (0-33); Albumin Level 3.9 g/dL (3.5-5.2); Alkaline Phosphatase 58 U/L (35-105); Aspartate Amino Transferase 14 U/L (0-32); Blood Urea Nitrogen 17 mg/dL (6-20); Calcium 8.9 mg/dL (8.5-10.5); Carbon Dioxide 28 mmol/L (22-29); Chloride 105 mmol/L (98-107); Creatinine Clr Calc Pharmacy 134.6381; Globulin 2.3 g/dL (1.3-4.6); Glomerular Filtration Rate 98.3 mL/min (90-130); Glucose 77 mg/dL (65-115); Osmolality Calculated 294 mOsm/kg (285-295); Sodium 142 mmol/L (136-145); Total Bilirubin 0.5 mg/dL (0.15-1.2); Total Protein 6.2 g/dL (6.6-8.7)
[2024-01-31 19:37] VITALS: BP 99/69; PULSE 86; RESP 18; O2SAT 99
== END 2024-01-31 19:38 | disposition home or self-care (01) ==
PROVIDERS: Emergency Provider Physician Assistant
DX: R07.89 Other chest pain (principal); R42 Dizziness and giddiness
CPT/HCPCS: 36415; 71045; 80053; 84484; 84703; 85025; 93005; 99285

== ENCOUNTER 2024-02-14 16:05 | Emergency (ER) | payer MEDICAID, SELFPAY ==
[2024-02-14 16:17] VITALS: BP 99/61; PULSE 86; RESP 16; TEMP 36.7; O2SAT 98
--- NOTE | 2024-02-14 16:24 | ED_ITS ---
HPI - Fall General: Chief Complaint: Fall Stated Complaint: fall, back and left ankle pain Time Seen by Provider: 02/14/24 16:24 Source: patient Mode of arrival: wheelchair (can ambulate with a limp) Limitations: no limitations History of Present Illness: Patient is a 28-year-old female who presents to the ED today for evaluation of a left foot and ankle injury as well as lower back pain that she sustained after accidentally tripping and falling down approximately 3 stairs. She is ambulatory with a mild limp. She denies striking her head or LOC. No neck pain. She has no other reported injuries other than previously stated. complaint: fall Onset (ago): hour(s) Fall from: down stairs (#) Fall witnessed: no Place fall occurred: home Loss of consciousness: None Prolonged down time: no Symptoms prior to fall: none Context: tripped/slipped Location of injury: back Location of injury - extremities: Left: ankle and foot Severity: moderate Associated symptoms-after fall: Reports difficulty walking (secondary to L foot/ankle pain); Denies chest pain, headache(s) or neck pain Review of Systems Card: Denies: chest pain Resp: Denies: dyspnea Musc: Reports: back pain, extremity pain (L foot) and joint pain (L ankle); Denies: neck pain, extremity swelling or joint swelling Neuro: Reports: difficulty walking (secondary to L foot/ankle pain); Denies: headache(s), numbness in extremities, weakness in extremities or sensory changes PFS ED PFSH: Medical History Nicotine dependence due to vaping tobacco product Non-suicidal self harm as coping mechanism Attention-deficit hyperactivity disorder, predominantly hyperactive type Diagnosed as a child Schizoaffective disorder, bipolar type Nicotine dependence, other tobacco product, uncomplicated Nicotine dependence, cigarettes, uncomplicated Post-traumatic stress disorder, chronic Psychiatric care SVT (supraventricular tachycardia) Methamphetamine use disorder, severe Last use 09/01/23 IV Surgical History No pertinent past surgical history Female Reproductive History: Date of last menstrual period: 12/27/23 Physical Exam Const: COMMON NORMALS: no acute distress, patient oriented x3, no limitations, alert and well nourished GENERAL APPEARANCE: cooperative HENMT: COMMON NORMALS: normocephalic and atraumatic HEAD & SCALP: normal to inspection, normocephalic and atraumatic Neck/C-Spine: COMMON NORMALS: full ROM CERVICAL SPINE: No Cervical spine tenderness Back/Pelvis: THORACIC SPINE/UPPER BACK: Yes thoracic ROM normal, No thoracic spinal tenderness and No paraspinal muscle tenderness LUMBAR SPINE/LOWER BACK: Yes lumbar spinal tenderness, Yes paraspinal muscle tenderness Lumbar paraspinal muscle tenderness: left, No paraspinal muscle spasm and Yes straight leg raise negative bilaterally PELVIS: Yes buttocks normal SACRUM: no tenderness COCCYX: no tenderness Extremity: COMMON NORMALS: capillary refill normal and no clubbing, cyanosis or edema GENERAL: Yes normal exam except as noted LEFT LOWER EXTREMITY: Yes ankle joint Left ankle: Yes palpation (TTP lateral L foot/ankle) and Yes neurovascular exam (normal) and Yes foot & digits (TTP lateral L foot and ankle) Left foot and digits: Yes neurovascular exam (normal) Neuro: COMMON NORMALS: patient oriented x3, moves all extremities, no focal motor deficits and no sensory deficits noted SENSORIUM/ORIENTATION: Yes alert Skin: TRAUMA: no lacerations or abrasions Course Vital Signs: Vital signs: Vital Signs Temperature 98.1 F 02/14/24 16:17 Pulse Rate 86 02/14/24 16:17 Respiratory Rate 16 02/14/24 16:17 Blood Pressure 99/61 02/14/24 16:17 Pulse Oximetry 98 02/14/24 16:17 Oxygen Delivery Me thod Room Air 02/14/24 16:17 MDM - Fall Medical Decision Making XR prelim read negative. RICE therapy discussed. Follow up with PCP in 2-3 weeks for continued pain. XR interpretation done by ED provider, pending radiology final review Discharge Plan Discharge Patient Disposition: Home Clinical Impression: Left ankle sprain Qualifiers: Encounter type: initial encounter Involved ligament of ankle: unspecified li gament Qualified Code(s): S93.402A - Sprain of unspecified ligament of left ankle, initial encounter Injury of lower back Qualifiers: Encounter type: initial encounter Qualified Code(s): S39.92XA - Unspecified injury of lower back, initial encounter Condition: Stable Prescriptions: No Action fluticasone propionate [Flonase Allergy Relief] 50 mcg/actuation spray,suspension 2 spray intranasal DAILY Qty: 16 0RF Rx Instructions: administer into each nostril ibuprofen 600 mg tablet 600 mg PO TID PRN (Reason: pain) Qty: 30 0RF paliperidone 6 mg tablet extended release 24hr 6 mg PO .7 pm Qty: 30 1RF Rx Instructions: Take one tablet at 7 pm naltrexone 50 mg tablet 50 mg PO .morning Qty: 30 3RF Rx Instructions: Take one tablet every morning acetaminophen 500 mg Tablet 1,000 mg PO Q6H PRN (Reason: Pain) albuterol sulfate 90 mcg/actuation Hfa Aerosol Inhaler 2 puff INHALATION QID PRN (Reason: Shortness Of Breath) Discharge Orders: Discharge ED (Routine); Ordered 02/14/24 Ordered By: Clara Garcia Patient Instructions: RICE Therapy Coding Level of Care Code ED Manager Production for Audra Sequeira
--- NOTE | 2024-02-14 16:30 | XRR_ITS ---
PROCEDURE INFORMATION: Exam: XR Lumbosacral Spine Exam date and time: 02/14/2024 4:40 PM Age: 28 years old Clinical indication: Injury or trauma; Fall; Blunt trauma (contusions or hematomas); Additional info: Fall/trauma TECHNIQUE: Imaging protocol: Radiologic exam of the lumbosacral spine. Views: 2 or 3 views. COMPARISON: CT abdomen pelvis w con* [id number] 10/31/2018 12:12 AM FINDINGS: Bones/joints: Normal. No acute fracture. Normal alignment. Soft tissues: Unremarkable. XR/XR lumbar spine 2-3V* [id number] IMPRESSION: No acute findings.
--- NOTE | 2024-02-14 16:30 | XRR_ITS ---
PROCEDURE INFORMATION: Exam: XR Left Foot Exam date and time: 02/14/2024 4:44 PM Age: 28 years old Clinical indication: Injury or trauma; Fall; Blunt trauma; Foot; Left TECHNIQUE: Imaging protocol: Radiologic exam of the left foot. Views: 3 or more views. COMPARISON: CR XR ankle LT min 3V* [id number] 02/14/2024 4:43 PM FINDINGS: Bones/joints: Normal. Soft tissues: Normal. XR/XR foot LT min 3V* [id number] IMPRESSION: No acute findings.
--- NOTE | 2024-02-14 16:30 | XRR_ITS ---
PROCEDURE INFORMATION: Exam: XR Left Ankle Exam date and time: 02/14/2024 4:43 PM Age: 28 years old Clinical indication: Injury or trauma; Fall; Blunt trauma; Ankle; Left TECHNIQUE: Imaging protocol: Radiologic exam of the left ankle. Views: 3 or more views. COMPARISON: CR XR knee LT 3V* [id number] 10/12/2018 10:14 PM FINDINGS: Bones/joints: Normal. Soft tissues: Normal. XR/XR ankle LT min 3V* [id number] IMPRESSION: No acute findings.
== END 2024-02-14 17:11 | disposition home or self-care (01) ==
PROVIDERS: Emergency Provider Physician Assistant
DX: S93.402A Sprain of unspecified ligament of left ankle, initial encounter (principal); S39.92XA Unspecified injury of lower back, initial encounter; W10.8XXA Fall (on) (from) other stairs and steps, initial encounter
CPT/HCPCS: 72100; 73610; 73630; 99284; E0114

== ENCOUNTER 2024-03-23 18:29 | Emergency (ER) | payer MEDICAID, SELFPAY ==
[2024-03-23 18:36] VITALS: BP 109/64; PULSE 98; RESP 16; TEMP 36.6; O2SAT 94; BMI 33.4
--- NOTE | 2024-03-23 18:47 | CTR_ITS ---
PROCEDURE INFORMATION: Exam: CT Head Without Contrast Exam date and time: 03/23/2024 6:54 PM Age: 28 years old Clinical indication: Pain; Headache; Patient HX: C/O severe [place]. ; Additional info: [place] worst of life TECHNIQUE: Imaging protocol: Computed tomography of the head without contrast. Radiation optimization: All CT scans at this facility use at least one of these dose optimization techniques: automated exposure control; mA and/or kV adjustment per patient size (includes targeted exams where dose is matched to clinical indication); or iterative reconstruction. COMPARISON: CT head wo con* [id number] 11/24/2023 8:43 PM RADIATION DOSE METRICS: Total DLP (mGy-cm): 1003.38 FINDINGS: Brain: Normal. No hemorrhage. Unremarkable white matter. No mass effect. Cerebral ventricles: No ventriculomegaly. Paranasal sinuses: Visualized sinuses are unremarkable. No fluid levels. Mastoid air cells: Visualized mastoid air cells are well aerated. Bones: Unremarkable. No acute fracture. Soft tissues: Unremarkable. CT/CT head wo con* [id number] IMPRESSION: No acute intracranial abnormality.
--- NOTE | 2024-03-23 18:47 | ED_ITS ---
Documented by User: AUNDREA Brandon 03/23/24 19:38 HPI - Headache General: Chief Complaint: Headache Stated Complaint: Headache Time Seen by Provider: 03/23/24 18:34 Source: patient Mode of arrival: ambulatory Limitations: no limitations History of Present Illness: Patient is a 28-year-old female presenting to the emergency department complaining of headache onset today. Patient states she woke with a headache and has been constant, in the occipital region. She notes associated blurred vision, nausea, and left-sided numbness/tingling. She states that she was seen in November for the same headache, though this feels much worse. She states it is worsened by light and sound, no specific alleviating factors noted. MD elicited complaint: headache Onset (ago): hour(s) Onset description: suddenly Location: occipital Severity: severe Pain scale (0-10): 10 Quality & Timing: squeezing Exacerbating factors: light and noise Relieving factors: nothing Associated symptoms: Reports nausea; Deny chest pain, fever(s), lightheadedness, rash or vomiting Review of Systems General: Reports: 10 or more systems reviewed and unremarkable except in HPI and below Const: Denies: fever(s), chills or fatigue Eyes: Reports: blurry vision ENMT: Denies: throat pain, ear or mastoid pain or nasal discharge Card: Denies: chest pain, palpitations, swelling of feet/ankles or lightheadedness Resp: Denies: dyspnea, productive cough or wheezing GI: Reports: nausea; Denies: abdominal pain, vomiting, diarrhea or constipation : Denies: flank pain, difficulty voiding, dysuria or urinary frequency Musc: Denies: neck pain, back pain or joint pain Skin/Breast: Denies: rash Neuro: Reports: headache(s), numbness in extremities and sensory changes PFSH ED PFSH: Medical History Nicotine dependence due to vaping tobacco product Non-suicidal self harm as coping mechanism Attention-deficit hyperactivity disorder, predominantly hyperactive type Diagnosed as a child Schizoaffective disorder, bipolar type Nicotine dependence, other tobacco product, uncomplicated Nicotine dependence, cigarettes, uncomplicated Post-traumatic stress disorder, chronic Psychiatric care SVT (supraventricular tachycardia) Methamphetamine use disorder, severe Last use 09/01/23 IV Surgical History No pertinent past surgical history Female Reproductive History: Date of last menstrual period: 03/22/24 Physical Exam Const: COMMON NORMALS: no acute distress, patient oriented x3 and no limitations GENERAL APPEARANCE: cooperative, comfortable and well developed ORIENTATION/CONSCIOUSNESS: Yes awake, Yes oriented to person, Yes oriented to place and Yes oriented to time HENMT: COMMON NORMALS: normocephalic, atraumatic and hearing grossly normal bilaterally HEAD & SCALP: normocephalic and atraumatic Eye: COMMON NORMALS: Equal, round and reactive pupils present, EOMs intact bilaterally and conjunctivae normal CONJUNCTIVA: Yes conjunctivae normal PUPIL: Yes Equal, round and reactive pupils present Neck/C-Spine: COMMON NORMALS: full ROM, supple and no JVD Resp: COMMON NORMALS: normal respiratory effort, No retractions, No use of accessory muscles and clear to auscultation bilaterally AUSCULTATION: clear to auscultation bilaterally Cardio: COMMON NORMALS: no JVD, regular rate, regular rhythm, No clicks present (Cardio), No murmurs present (Cardio) and No rub (Cardio) RATE: regular rate RHYTHM: regular rhythm GI: COMMON NORMALS: Normal to inspection, nondistended, normoactive bowel sounds present, Soft to palpation and non-tender AUSCULTATION: Yes normoactive bowel sounds PALPATION: Yes Soft to palpation RECTAL EXAM: deferred Extremity: COMMON NORMALS: normal to inspection, full ROM and capillary refill normal Neuro: COMMON NORMALS: patient oriented x3, CN's II-XII intact bilaterally, moves all extremities, no focal motor deficits and no sensory deficits noted SENSORIUM/ORIENTATION: Yes oriented to person, Yes oriented to place and Yes oriented to time Psych: COMMON NORMALS: mental status grossly normal and Normal thought process present THOUGHT PROCESS: Normal thought process present Skin: COMMON NORMALS: no rashes or lesions noted GENERAL SKIN EXAM: no rashes or lesions noted Course Vital Signs: Vital signs: Vital Signs Temperature 97.9 F 03/23/24 18:36 Pulse Rate 69 03/23/24 19:11 Respiratory Rate 16 03/23/24 19:11 Blood Pressure 109/64 03/23/24 19:11 Pulse Oximetry 98 03/23/24 19:11 Oxygen Delivery Me thod Room Air 03/23/24 19:11 MDM - Headache Medical Decision Making Patient presents with headache, stating it felt different than a previous migraine in which she was seen in the emergency department back in November. CT head today did not reveal any intracranial abnormalities, patient likely dealing with exacerbation of her migraine. She is given migraine cocktail here in the emergency department, discharged home with instructions to follow-up with primary care for potential neurology referral. Patient agrees with plan and reasons to return discussed. Lab Data Radiology Impressions Head CT 03/23/24 18:47 IMPRESSION: No acute intracranial abnormality. All radiology interpretation(s) finalized by discharge Discharge Plan Discharge Patient Disposition: Home Clinical Impression: Migraine Qualifiers: Migraine type: unspecified Status migrainosus presence: without status migrainosus Intractability: intractable Qualified Code(s): G43.919 - Migraine, unspecified, intractable, without status migrainosus Condition: Stable Prescriptions: New ondansetron HCl 4 mg tablet 4 mg PO Q8H Qty: 30 0RF No Action fluticasone propionate [Flonase Allergy Relief] 50 mcg/actuation spray,suspension 2 spray intranasal DAILY Qty: 16 0RF Rx Instructions: administer into each nostril ibuprofen 600 mg tablet 600 mg PO TID PRN (Reason: pain) Qty: 30 0RF naltrexone 50 mg tablet 50 mg PO .morning Qty: 30 3RF Rx Instructions: Take one tablet every morning paliperidone 3 mg tablet extended release 24hr 3 mg PO QAM Qty: 30 3RF Rx Instructions: Take one tablet every morning paliperidone 6 mg tablet extended release 24hr 6 mg PO BEDTIME Qty: 30 3RF Rx Instructions: Take one tablet at bedtime Vivitrol 380 mg suspension,extended rel recon 380 mg IM .Q30 days Qty: 1 3RF Rx Instructions: Injection every 30 days acetaminophen 500 mg Tablet 1,000 mg PO Q6H PRN (Reason: Pain) albuterol sulfate 90 mcg/actuation Hfa Aerosol Inhaler 2 puff INHALATION QID PRN (Reason: Shortness Of Breath) Discharge Orders: Discharge ED (Routine); Ordered 03/23/24 Ordered By: Ronald Cowan Discharge Diet: Usual diet Discharge Activity: Increase activity as tolerated Patient Instructions: Migraine Headache (ED) Activity Restrictions/Additional Instructions: Plenty of fluids. Avoid any potential triggers of her migraines. Follow-up with primary care as discussed. Return with any new or worsening. Coding Level of Care Code ED Knowledge Engineer for Gladysg Fwd Documented by User: Mario Schaeffer DO 03/26/24 16:46 HPI - Headache General: Chief Complaint: Headache Stated Complaint: Headache Time Seen by Provider: 03/23/24 18:34 PFSH ED PFSH: Medical History Nicotine dependence due to vaping tobacco product Non-suicidal self harm as coping mechanism Attention-deficit hyperactivity disorder, predominantly hyperactive type Diagnosed as a child Schizoaffective disorder, bipolar type Nicotine dependence, other tobacco product, uncomplicated Nicotine dependence, cigarettes, uncomplicated Post-traumatic stress disorder, chronic Psychiatric care SVT (supraventricular tachycardia) Methamphetamine use disorder, severe Last use 09/01/23 IV Surgical History No pertinent past surgical history Course Vital Signs: Vital signs: Vital Signs Temperature 97.9 F 03/23/24 18:36 Pulse Rate 69 03/23/24 19:11 Respiratory Rate 16 03/23/24 19:11 Blood Pressure 109/64 03/23/24 19:11 Pulse Oximetry 98 03/23/24 19:11 Oxygen Delivery Me thod Room Air 03/23/24 19:11 MDM - Headache Medical Decision Making Patient presents with headache, stating it felt different than a previous migraine in which she was seen in the emergency department back in November. CT head today did not reveal any intracranial abnormalities, patient likely dealing with exacerbation of her migraine. She is given migraine cocktail here in the emergency department, discharged home with instructions to follow-up with primary care for potential neurology referral. Patient agrees with plan and reasons to return discussed. Chart reviewed Lab Data Radiology Impressions Head CT 03/23/24 18:47 IMPRESSION: No acute intracranial abnormality. Discharge Plan Discharge Patient Disposition: Home Clinical Impression: Migraine Qualifiers: Migraine type: unspecified Status migrainosus presence: without status migrainosus Intractability: intractable Qualified Code(s): G43.919 - Migraine, unspecified, intractable, without status migrainosus Condition: Stable Prescriptions: New ondansetron HCl 4 mg tablet 4 mg PO Q8H Qty: 30 0RF No Action fluticasone propionate [Flonase Allergy Relief] 50 mcg/actuation spray,suspension 2 spray intranasal DAILY Qty: 16 0RF Rx Instructions: administer into each nostril ibuprofen 600 mg tablet 600 mg PO TID PRN (Reason: pain) Qty: 30 0RF naltrexone 50 mg tablet 50 mg PO .morning Qty: 30 3RF Rx Instructions: Take one tablet every morning paliperidone 3 mg tablet extended release 24hr 3 mg PO QAM Qty: 30 3RF Rx Instructions: Take one tablet every morning paliperidone 6 mg tablet extended release 24hr 6 mg PO BEDTIME Qty: 30 3RF Rx Instructions: Take one tablet at bedtime Vivitrol 380 mg suspension,extended rel recon 380 mg IM .Q30 days Qty: 1 3RF Rx Instructions: Injection every 30 days acetaminophen 500 mg Tablet 1,000 mg PO Q6H PRN (Reason: Pain) albuterol sulfate 90 mcg/actuation Hfa Aerosol Inhaler 2 puff INHALATION QID PRN (Reason: Shortness Of Breath) Discharge Orders: Discharge ED (Routine); Ordered 03/23/24 Ordered By: Ronald Cowan Discharge Diet: Usual diet Discharge Activity: Increase activity as tolerated Patient Instructions: Migraine Headache (ED) Activity Restrictions/Additional Instructions: Plenty of fluids. Avoid any potential triggers of her migraines. Follow-up with primary care as discussed. Return with any new or worsening. Coding Level of Care Code ED Knowledge Engineer for Audra Sequeira
[2024-03-23 19:11] VITALS: BP 109/64; PULSE 69; RESP 16; O2SAT 98
[2024-03-23] MEDS: metoclopramide 5 mg/mL SDV 2 mL 10 MG IM (19:57)
[2024-03-23] MEDS: ketorolac 60 mg/2 mL INJ IM (19:59)
[2024-03-23] MEDS: dexamethasone 10 mg/mL INJ 8 MG IM (19:59)
== END 2024-03-23 20:50 | disposition home or self-care (01) ==
PROVIDERS: Emergency Provider Physician Assistant
DX: G43.919 Migraine, unspecified, intractable, without status migrainosus (principal)
CPT/HCPCS: 70450; 96372; 99284; J1100; J1885; J2765

== ENCOUNTER 2024-08-24 15:33 | Outpatient (CLI) | payer MEDICAID, SELFPAY ==
--- NOTE | 2024-08-24 15:36 | USR_ITS ---
PROCEDURE INFORMATION: Exam: US Duplex Right Lower Extremity Veins, Limited Exam date and time: 08/24/2024 3:45 PM Age: 29 years old Clinical indication: Edema, localized; Lower extremity, right; Additional info: Lower extremity edema, right TECHNIQUE: Imaging protocol: Real-time duplex ultrasound of the right extremity with 2-D rehman scale, color Doppler flow and spectral waveform analysis including responses to compression and other maneuvers (when performed) with image documentation. Limited exam was focused on the right lower extremity veins. COMPARISON: US transvaginal [id number] 11/07/2018 2:36 PM FINDINGS: Right deep veins: Unremarkable. The common femoral, femoral, proximal profunda femoral and popliteal veins are patent without thrombus. Normal Doppler waveforms. Normal compressibility and/or augmentation response. Superficial veins: Greater saphenous vein at the saphenofemoral junction is patent without thrombus. Soft tissues: Unremarkable. US/[place] [id number] IMPRESSION: No evidence of deep vein thrombosis.
== END 2024-08-24 15:34 | disposition home or self-care (01) ==
LOC: RAD 15:34
PROVIDERS: PCP Family Medicine; Visit Provider Family Medicine
DX: R60.0 Localized edema (principal)
CPT/HCPCS: 93971

== ENCOUNTER 2024-09-12 18:07 | Emergency (ER) | payer MEDICAID, SELFPAY ==
[2024-09-12 18:16] VITALS: BP 118/81; PULSE 115; RESP 16; TEMP 36.8; O2SAT 98
--- NOTE | 2024-09-12 18:52 | CTR_ITS ---
PROCEDURE INFORMATION: Exam: CT Abdomen And Pelvis With Contrast Exam date and time: 09/12/2024 7:58 PM Age: 29 years old Clinical indication: Abdominal pain; Flank; Left lower quadrant (llq); Additional info: Abd pain TECHNIQUE: Imaging protocol: Computed tomography of the abdomen and pelvis with contrast. Axial, coronal and sagittal reformatted images were created and reviewed. Radiation optimization: All CT scans at this facility use at least one of these dose optimization techniques: automated exposure control; mA and/or kV adjustment per patient size (includes targeted exams where dose is matched to clinical indication); or iterative reconstruction. Contrast material: OMNI 350; Contrast volume: 100 ml; Contrast route: INTRAVENOUS (IV); COMPARISON: CT abdomen pelvis w con* [id number] 10/31/2018 12:12 AM RADIATION DOSE METRICS: Total DLP (mGy-cm): 769.73 FINDINGS: Pleural spaces: Small pleural effusions. Liver: Unremarkable. Gallbladder and biliary ducts: Status post cholecystectomy. No biliary ductal dilatation. Pancreas: Unremarkable. Spleen: Unremarkable. Adrenal glands: Normal. No mass. Kidneys and ureters: 8 mm low-density left renal lesion, too small to characterize (no follow-up is indicated based on the imaging appearance). No radiodense calculi. No hydronephrosis. Stomach and bowel: Moderate amount of retained stool in the colon. No obstruction. No bowel wall thickening. No pneumatosis. Appendix: Normal. Intraperitoneal space: No free fluid. No organized fluid collection. No free air. Vasculature: Unremarkable. No aneurysm. Lymph nodes: Small mesenteric lymph nodes, nonspecific in appearance. No pathologically enlarged lymph nodes. Urinary bladder: Mild circumferential urinary bladder wall thickening, likely secondary to underdistention. Reproductive: Dominant left ovarian follicle. Bones/joints: No acute osseous abnormality. Soft tissues: Unremarkable. CT/CT abdomen pelvis w con* [id number]: 1. No CT evidence of acute intra-abdominal or pelvic pathology. 2. Small pleural effusions. 3. Additional findings, as above. COMMENTS: Consistent with the [employer]'s Incidental Findings Committee white paper (J Am Christine Radiol 2018): Any incidental renal lesion less than 1 cm or classified as too small to characterize, or any incidental cystic renal lesion characterized as simple-appearing, is likely benign. No follow-up imaging is recommended for these lesions per consensus recommendations based on imaging criteria.
--- NOTE | 2024-09-12 18:54 | ED_ITS ---
HPI - Abdominal Pain 2 General: Chief Complaint: Abdominal Pain Stated Complaint: bldy aches pain in flank headache Time Seen by Provider: 09/12/24 18:47 Source: patient Mode of arrival: ambulatory Limitations: no limitations History of Present Illness: 29-year-old female states last 2 days sh rena has been having bodyaches chills low- grade fevers along with fatigue. She states that she is also been having some left flank pain she denies any vomiting or diarrhea denies any dysuria denies any worsening improving factors. Associated Symptoms: Reports chills; Denies diarrhea, fever(s), nausea and vomiting Related Data Home Medications Medication Instructions Recorded Confirmed acetaminophen 500 mg tablet 1,000 mg PO Q6H PRN Pain 01/20/23 08/30/24 albuterol sulfate 90 mcg/actuation 2 puff inhalation QID PRN 01/20/23 08/30/24 aerosol inhaler Shortness Of Breath Previous Rx's Medication Instructions Recorded fluticasone propionate 50 2 spray intranasal DAILY #16 grams 12/10/23 mcg/actuation nasal spray,suspension (Flonase Allergy Relief) ibuprofen 600 mg tablet 600 mg PO TID PRN pain #30 tabs 12/10/23 ondansetron HCl 4 mg tablet 4 mg PO Q8H #30 tabs 03/23/24 lorazepam 0.5 mg tablet 0.5 mg PO DAILY PRN anxiety/panic 08/30/24 attacks #30 tabs quetiapine 400 mg tablet,extended 400 mg PO .7 pm #30 tabs 08/30/24 release 24 hr (Seroquel XR) topiramate 25 mg tablet (Topamax) 25 mg PO BEDTIME #30 tabs 08/30/24 trazodone 50 mg tablet 50 mg PO BEDTIME PRN sleep #30 tabs 08/30/24 Allergies Allergy/AdvReac Type Severity Reaction Status Date / Time diphenhydramine Allergy Mild ADR-Numbnes Verified 08/30/24 13:08 [From Benadryl] s 2-octyl cyanoacrylate Allergy Unknown Verified 08/30/24 13:08 aspirin Allergy ADR-Vomitin Verified 08/30/24 13:08 g naproxen Allergy ADR-Vomitin Verified 08/30/24 13:08 g prazosin AdvReac Severe ADR-Hyperte Verified 08/30/24 13:08 nsion Review of Systems 2 Const: Reports: chills and body aches; Denies: fever(s) or change in appetite Eyes: Denies: eye discomfort ENMT: Denies: throat pain or dental pain Card: Denies: chest pain Resp: Denies: dyspnea GI: Denies: abdominal pain, nausea, vomiting or diarrhea : Reports: flank pain Musc: Denies: neck pain or back pain Skin/Breast: Denies: rash Neuro: Denies: headache(s) PFSH ED 2 PFSH: Medical History Generalized anxiety disorder with panic attacks Other stimulant dependence, in remission Early remission last use 09/01/23 IV Nicotine dependence due to vaping tobacco product Non-suicidal self harm as coping mechanism Attention-deficit hyperactivity disorder, predominantly hyperactive type Diagnosed as a child Schizoaffective disorder, bipolar type Post-traumatic stress disorder, chronic Psychiatric care SVT (supraventricular tachycardia) Surgical History No pertinent past surgical history Physical Exam 2 Const: COMMON NORMALS: no acute distress, patient oriented x3 and healthy appearing HENMT: COMMON NORMALS: normocephalic and atraumatic HEAD & SCALP: n ormocephalic and atraumatic Eye: COMMON NORMALS: conjunctivae normal CONJUNCTIVA: Yes conjunctivae normal Neck/C-Spine: COMMON NORMALS: full ROM and supple Chest: COMMONS NORMALS: normal inspection of the chest Resp: COMMON NORMALS: normal respiratory effort, No retractions, No use of accessory muscles and clear to auscultation bilaterally AUSCULTATION: clear to auscultation bilaterally Cardio: COMMON NORMALS: regular rate, regular rhythm and No murmurs present (Cardio) RATE: regular rate RHYTHM: regular rhythm GI: COMMON NORMALS: Normal to inspection, nondistended, normoactive bowel sounds present, Soft to palpation, non-tender and no masses PALPATION: Yes Soft to palpation Extremity: COMMON NORMALS: normal to inspection and full ROM Neuro: COMMON NORMALS: patient oriented x3, moves all extremities and no focal motor deficits Psych: COMMON NORMALS: mental status grossly normal, Normal thought process present and cooperative THOUGHT PROCESS: Normal thought process present Skin: COMMON NORMALS: no rashes or lesions noted and no wounds GENERAL SKIN EXAM: no rashes or lesions noted Course 2 Vital Signs: Vital signs: Vital Signs Temperature 98.2 F 09/12/24 18:16 Pulse Rate 78 09/12/24 21:00 Respiratory Rate 16 09/12/24 18:16 Blood Pressure 102/68 09/12/24 21:00 Pulse Oximetry 98 09/12/24 21:00 Oxygen Delivery Me thod Room Air 09/12/24 21:00 MDM - Abdominal Pain Medical Decision Making Patient presents with bodyaches abdominal pain she did test positive for COVID is likely causing her symptoms CT of her abdomen is normal blood works normal she is stable for discharge follow-up PCP return if worsening Medical Records I reviewed the patient's medical records. Lab Data I reviewed the patient's lab results. 09/12/24 19:15 09/12/24 19:15 Labs/Radiology: Radiology Impressions Abdomen/Pelvis CT 09/12/24 18:[address]: [address] evidence of acute intra-abdominal or pelvic pathology. 2. Small pleural effusions. 3. Additional findings, as above. COMMENTS: Consistent with the [employer]'s Incidental Findings Committee white paper (J Am Christine Radiol 2018): Any incidental renal lesion less than 1 cm or classified as too small to characterize, or any incidental cystic renal lesion characterized as simple-appearing, is likely benign. No follow-up imaging is recommended for these lesions per consensus recommendations based on imaging criteria. Laboratory Results WBC 7.36 10^3/uL (3.29-11.43) 09/12/24 19:15 RBC 5.08 10^6/uL (3.85-5.65) 09/12/24 19:15 Hgb 13.10 g/dL (11.27-16.99) 09/12/24 19:15 Hct 41.9 % (36-47) 09/12/24 19:15 MCV 82.5 fl (85-98) L 09/12/24 19:15 MCH 25.8 pg (27-33) L 09/12/24 19:15 MCHC 31.3 g/dL (30-55) 09/12/24 19:15 RDW 14.8 % (12.1-15.1) 09/12/24 19:15 Plt Count 264 10^3/cmm (157-399) 09/12/24 19:15 MPV 11.3 fL (7.4-10.4) H 09/12/24 19:15 Neut % (Auto) 69.6 % 09/12/24 19:15 Lymph % (Auto) 20.7 % 09/12/24 19:15 [place] % (Auto) 7.6 % 09/12/24 19:15 Eos % (Auto) 1.4 % 09/12/24 19:15 Baso % (Auto) 0.4 % 09/12/24 19:15 Neut # (Auto) 5.13 10^3/uL (1.8-7.7) 09/12/24 19:15 Lymph # (Auto) 1.5 10^3/uL (0.8-4.8) 09/12/24 19:15 [place] # (Auto) 0.6 10^3/uL (0.2-0.9) 09/12/24 19:15 Eos # (Auto) 0.1 10^3/uL (0.0-0.8) 09/12/24 19:15 Baso # (Auto) 0.0 10^3/uL (0.0-0.1) 09/12/24 19:15 Nucleated RBC % (auto) 0 % 09/12/24 19:15 Nucleated RBCs # 0.0 /100WBC 09/12/24 19:15 Sodium 135 mmol/L (136-145) L 09/12/24 19:15 Potassium 3.7 mmol/L (3.5-5.1) 09/12/24 19:15 Chloride 101 mmol/L (98-107) 09/12/24 19:15 Carbon Dioxide 23 mmol/L (22-29) 09/12/24 19:15 Anion Gap 14.7 (5-19) 09/12/24 19:15 BUN 15 mg/dL (6-20) 09/12/24 19:15 Creatinine 1.0 mg/dL (0.5-0.9) H 09/12/24 19:15 GFR Calculation 64.7 mL/min (90-130) L 09/12/24 19:15 Glucose 91 mg/dL (65-115) 09/12/24 19:15 Calculated Osmolality 280 mOsm/kg (285-295) L 09/12/24 19:15 Calcium 9.5 mg/dL (8.5-10.5) 09/12/24 19:15 Total Bilirubin 0.4 mg/dL (0.15-1.2) 09/12/24 19:15 AST 21 U/L (0-32) 09/12/24 19:15 ALT 15 U/L (0-33) 09/12/24 19:15 Alkaline Phosphatase 72 U/L (35-105) 09/12/24 19:15 Total Protein 8.3 g/dL (6.6-8.7) 09/12/24 19:15 Albumin 4.6 g/dL (3.5-5.2) 09/12/24 19:15 Globulin 3.7 g/dL (1.3-4.6) 09/12/24 19:15 Lipase 16 U/L (13-60) 09/12/24 19:15 HCG, Qual Negative (Negative) 09/12/24 19: Urine Color Yellow (Yellow) 09/12/24 19:28 Urine Appearance Cloudy (CLEAR) A 09/12/24 19: Urine pH 5.0 (5-7) 09/12/24 19: Ur Specific [place] 1.029 (1.005-1.030) 09/12/24 19: Urine Protein Negative (Negative) 09/12/24: Urine Glucose (UA) Negative (Normal) 09/12/24 19: Urine Ketones Negative (Negative) 09/12/24 19: Urine Blood 2+ (Negative) A 09/12/24: Urine Nitrate Negative (Negative) 09/12/24 19: Urine Bilirubin Negative (Negative) 09/12/24 19: Urine Urobilinogen 1.0 mg/dL (Negative) 09/12/24 19: Ur Leukocyte Esterase Negative (Negative) 09/12/24 19: Urine RBC 0-2 /hpf (0-2) 09/12/24 19: Urine WBC 11-20 /hpf (0-5) H 09/12/24 19:28 Ur Squamous Epith Cells 0-5 /hpf (0-5) 09/12/24 19: Amorphous Sediment Not Reportable 09/12/24 19: Urine Bacteria 4+ /hpf (NONE) H 09/12/24 19:28 Hyaline Casts 2.87 /lpf 09/12/24 19:28 Coronavirus (PCR) Positive (Negative) A 09/12/24 19:05 Influenza A (PCR) Negative (Negative) 09/12/24 19:05 Influenza Type B (PCR) Negative (Negative) 09/12/24 19:05 RSV (PCR) Negative (Negative) 09/12/24 19:05 All radiology interpretation(s) finalized by discharge Discharge Plan Discharge Patient Disposition: Home Clinical Impression: COVID-19 Condition: Stable Prescriptions: No Action fluticasone propionate [Flonase Allergy Relief] 50 mcg/actuation spray,suspension 2 spray intranasal DAILY Qty: 16 0RF Rx Instructions: administer into each nostril ibuprofen 600 mg tablet 600 mg PO TID PRN (Reason: pain) Qty: 30 0RF topiramate [Topamax] 25 mg tablet 25 mg PO BEDTIME Qty: 30 3RF Rx Instructions: Take one tablet at bedtime lorazepam 0.5 mg tablet 0.5 mg PO DAILY PRN (Reason: anxiety/panic attacks) Qty: 30 1RF Rx Instructions: May take one tablet daily as needed for anxiety/panic attacks quetiapine [Seroquel XR] 400 mg tablet extended release 24 hr 400 mg PO .7 pm Qty: 30 3RF Rx Instructions: Take one tablet at 7 pm trazodone 50 mg tablet 50 mg PO BEDTIME PRN (Reason: sleep) Qty: 30 3RF Rx Instructions: may take half to one tablet at bedtime as needed for sleep acetaminophen 500 mg Tablet 1,000 mg PO Q6H PRN (Reason: Pain) albuterol sulfate 90 mcg/actuation Hfa Aerosol Inhaler 2 puff INHALATION QID PRN (Reason: Shortness Of Breath) ondansetron HCl 4 mg tablet 4 mg PO Q8H Qty: 30 0RF Discharge Orders: Discharge ED (Routine); Ordered 09/12/24 Ordered By: Ciera Avery Referrals: Amy Rascon DO [Primary Care Provider] - Discharge Diet: Advance as tolerated Discharge Activity: Resume usual activity Patient Instructions: COVID-19 (Coronavirus Disease 2019) (ED) Coding Level of Care Code ED Continuity Clerk for Audra Sequeira
[2024-09-12] MEDS: sodium chloride 0.9% 1,000 ML 999 ML IV (19:15)
[2024-09-12] MEDS: ketorolac 30 mg/mL INJ IVP (19:15)
[2024-09-12 19:30] LABS: Basophils % 0.4 %; Eosinophils # 0.1 10^3/uL (0.0-0.8); Eosinophils % 1.4 %; Hematocrit 41.9 % (36-47); Lymphocytes # 1.5 10^3/uL (0.8-4.8); Lymphocytes % 20.7 %; Mean Corpuscular HGB Conc 31.3 g/dL (30-55); Mean Corpuscular Hemoglobin 25.8 pg (27-33); Mean Corpuscular Volume 82.5 fl (85-98); Mean Platelet Volume 11.3 fL (7.4-10.4); Monocytes # 0.6 10^3/uL (0.2-0.9); Monocytes % 7.6 %; Neutrophils # 5.13 10^3/uL (1.8-7.7); Neutrophils % 69.6 %; Nucleated Red Blood Cells % 0 %; Platelet Count 264 10^3/cmm (157-399); Red Blood Count 5.08 10^6/uL (3.85-5.65); Red Cell Distribution Width 14.8 % (12.1-15.1); White Blood Count 7.36 10^3/uL (3.29-11.43)
[2024-09-12 19:47] LABS: Alanine Aminotransferase 15 U/L (0-33); Albumin Level 4.6 g/dL (3.5-5.2); Alkaline Phosphatase 72 U/L (35-105); Anion Gap 14.7 (5-19); Aspartate Amino Transferase 21 U/L (0-32); Blood Urea Nitrogen 15 mg/dL (6-20); Calcium 9.5 mg/dL (8.5-10.5); Carbon Dioxide 23 mmol/L (22-29); Chloride 101 mmol/L (98-107); Creatinine Clr Calc Pharmacy 113.8192; Globulin 3.7 g/dL (1.3-4.6); Glomerular Filtration Rate 64.7 mL/min (90-130); Glucose 91 mg/dL (65-115); Lipase 16 U/L (13-60); Osmolality Calculated 280 mOsm/kg (285-295); Potassium 3.7 mmol/L (3.5-5.1); Sodium 135 mmol/L (136-145); Total Bilirubin 0.4 mg/dL (0.15-1.2); Total Protein 8.3 g/dL (6.6-8.7)
[2024-09-12 19:49] LABS: HCG, Serum Qual Negative (Negative)
[2024-09-12 20:01] LABS: Bilirubin Urine Negative (Negative); Blood Urine 2+ (Negative); Glucose Urine UA Negative (Normal); Ketones Urine Negative (Negative); Leukocyte Esterase Urine Negative (Negative); Nitrate Urine Negative (Negative); Protein Urine Negative (Negative); Specific Gravity, Urine 1.029 (1.005-1.030); Urine Appearance Cloudy (CLEAR); Urine Color Yellow (Yellow)
[2024-09-12] MEDS: iohexol 350 mg/mL 500 mL Btl (per mL) IV (20:01)
[2024-09-12 20:04] LABS: Add Urine Microscopic? YES; Bacteria Urine 4+ /hpf; Hyaline Casts Urine 2.87 /lpf; RBC Urine 0-2 /hpf (0-2); Squamous Epithelial Cell Urine 0-5 /hpf (0-5)
[2024-09-12 20:11] LABS: Add Urine Culture? Yes
[2024-09-12 20:13] LABS: Influenza A NEGATIVE (Negative); Influenza B NEGATIVE (Negative); Respiratory Syncytial Virus Ce NEGATIVE (Negative)
[2024-09-12 20:19] LABS: Covid PCR Positive (Negative)
[2024-09-12 20:29] VITALS: BP 98/61; PULSE 82; O2SAT 100
[2024-09-12 20:30] VITALS: BP 94/65; PULSE 83; O2SAT 100
[2024-09-12 21:00] VITALS: BP 102/68; PULSE 78; O2SAT 98
[2024-09-12 21:21] VITALS: BP 102/68; PULSE 62; O2SAT 98
== END 2024-09-12 21:22 | disposition home or self-care (01) ==
PROVIDERS: Emergency Provider Emergency Medicine; PCP Family Medicine
DX: U07.1 COVID-19 (principal); Z11.52 Encounter for screening for COVID-19
CPT/HCPCS: 0241U; 74177; 80053; 81001; 83690; 84703; 85025; 87086; 96361; 96374; 99285; J1885; J7030

== ENCOUNTER → 2024-12-19 13:06 | Outpatient (BNVA) | payer OTHER, SELFPAY | PROVIDERS: PCP Family Medicine; Visit Provider Specialist | DX: G56.03 Carpal tunnel syndrome, bilateral upper limbs (principal); M06.4 Inflammatory polyarthropathy; Z46.89 Encounter for fitting and adjustment of other specified devices | CPT/HCPCS: 36415; 73130; 80053; 84550; 85025; 85651; 86140; 86200; 86225; 86235; 86431 ==

== ENCOUNTER 2025-01-11 12:48 | Outpatient (CLI) | payer MEDICAID, SELFPAY ==
--- NOTE | 2025-01-11 13:00 | MRR_ITS ---
PROCEDURE INFORMATION: Exam: MR Right Upper Extremity Other Than Joint Without Contrast; Hand Exam date and time: 01/11/2025 1:06 PM Age: 29 years old Clinical indication: Prior surgery; Surgery date: 6+ months; Swelling and pain in top of hand. PT has bilat carpal tunnel and prior to surg. Wanting to eval hand swelling. PT has HX of trauma to hand several years ago. Large well door slammed down on hand. ; Additional info: Hand pain TECHNIQUE: Imaging protocol: MR of the right upper extremity without contrast. Exam focused on the hand. COMPARISON: CR XR hand RT min 3V* [id number] 12/19/2024 1:07 PM FINDINGS: Bones/joints: Unremarkable. No bone abnormalities. Articular cartilage is normal. No joint effusion. Collateral ligaments of digits: Unremarkable. No evidence of tear. Flexor compartment tendons: Unremarkable. No evidence of tear. Extensor compartment tendons: Unremarkable. No evidence of tear. Soft tissues: Unremarkable. MR/MR hand RT wo con* [id number] IMPRESSION: Normal appearance of the right hand.
== END 2025-01-11 12:49 | disposition home or self-care (01) ==
LOC: RAD 12:50
PROVIDERS: PCP Family Medicine; Visit Provider Specialist
DX: M79.641 Pain in right hand (principal)
CPT/HCPCS: 73218

== ENCOUNTER → 2025-01-30 09:01 | Outpatient (BNVA) | payer MEDICARE, MEDICAID, SELFPAY | PROVIDERS: PCP Family Medicine; Visit Provider Specialist | DX: G56.03 Carpal tunnel syndrome, bilateral upper limbs (principal) | CPT/HCPCS: 36415; 80053; 81001; 85025; 87086; 99214 ==

== ENCOUNTER 2025-01-31 05:39 | Day surgery (SDC) | payer MEDICARE, MEDICAID, SELFPAY ==
[2025-01-31] VITALS (12 sets, daily range): BP systolic 98–134; BP diastolic 50–72; PULSE 70–83; RESP 12–18; TEMP 36.1–36.4; O2SAT 92–99; BMI 39.9
--- NOTE | 2025-01-31 06:14 | P.ANESASSM_ITS ---
Pre-Anesthetic Assessment Height/Weight: Height 4 ft 10 in Preop Diagnosis: Carpal tunnel syndrome Operation Date: 01/31/25 07:00 Proposed Procedures p Carpal Tunnel Release(Right) - Harleen Jensen MD Was Beta Camille taken within 24 hours: N/A Was Clonidine taken within 24 hours: N/A Social Tobacco and No alcohol Exam alert, oriented x 3 and regular rate & rhythm Diminished breath sounds bilaterally Airway Submandibular: within normal limits Cervical ROM: within normal limits Mallampati: Class II Comments: Comments: Edentulous Anesthetic Plan ASA status: 2 Anesthesia: General Other: Patient states that she is very sensitive to anesthesia medications NPO since yesterday evening Vapes nicotine Prior methamphetamine abuse history, clean for 18 months. Extensive conversation had with patient about the risks if she has used any substance since recently and she appears to be very straightforward and honest about her history. Prior SVT on propranolol Labs reviewed from 01/30/2025 and acceptable for procedure Plan for general anesthesia Medications/Allergies Home Medications ?Medication ?Instructions ?Recorded ?Confirmed ?Last Taken ?Type albuterol sulfate 90 mcg/actuation 2 puff inhalation Q ID PRN 01/20/23 01/30/25 Unknown History aerosol inhaler Shortness Of Breath fluticasone propionate 50 2 spray intranasal DAILY #16 grams 12/10/23 01/30/25 Unknown Rx mcg/actuation nasal spray,suspension (Flonase Allergy Relief) ibuprofen 600 mg tablet 600 mg PO TID PRN pain #30 t abs 12/10/23 01/30/25 Unknown Rx trazodone 50 mg tablet 50 mg PO BEDTIME PRN sleep # 30 tabs 11/22/24 01/30/25 01/30/25 Rx bilateral cock up wrist splints #1 ea 12/19/24 5 Unknown Rx propranolol 20 mg tablet 20 mg PO TID PRN anxiety #90 tabs 01/28/25 01/30/25 01/30/25 Rx quetiapine 400 mg tablet,extended 400 mg PO .7 pm #30 tabs 01/28/25 01/30/25 01/30/25 Rx release 24 hr (Seroquel XR) tirzepatide (weight loss) 5 mg/0.5 mg SUBCUT 01/28/25 01/30/25 01/23/25 History mL subcutaneous pen injector (Zepbound) topiramate 25 mg tablet (Topamax) 25 mg PO TID #90 tab s 01/28/25 01/30/25 01/30/25 Rx Allergies Allergy/AdvReac Type Severity Reaction Status Date / Time diphenhydramine (From Allergy Mild ADR-Numbnes Verified 01/30/25 09:08 Benadryl) s 2-octyl cyanoacrylate Allergy Unknown Verified 01/30/25 09:08 aspirin Allergy ADR-Vomitin Verified 01/30/25 09:08 g naproxen Allergy ADR-Vomitin Verified 01/30/25 09:08 g prazosin AdvReac Severe ADR-Hyperte Verified 01/30/25 09:08 nsion dermabon Allergy Intermediate burning Uncoded 01/30/25 09:08 [facility] Anesthesia Medical History Generalized anxiety disorder with panic attacks Other stimulant dependence, in remission Early remission last use 09/01/23 IV Nicotine dependence due to vaping tobacco product Non-suicidal self harm as coping mechanism Attention-deficit hyperactivity disorder, predominantly hyperactive type Diagnosed as a child Schizoaffective disorder, bipolar type Post-traumatic stress disorder, chronic Psychiatric care SVT (supraventricular tachycardia) Surgical History No pertinent past surgical history Social History Smoking and tobacco/nicotine status: unknown if used tobacco/nicotine Female Reproductive History Date of last menstrual period: 01/30/25 Data Anesthesia Cardiac Studies: No Data to Display
[2025-01-31] MEDS: acetaminophen 1,000 MG/100 ML PIGGYBACK 400 MG IV (06:36)
[2025-01-31] MEDS: sodium chloride 0.9% 1,000 ML 30 ML IV (06:36)
[2025-01-31] MEDS: gabapentin 300 mg Capsule PO (06:36)
[2025-01-31 06:51] LABS: OR HCG Qualitative Urine Negative (Negative)
--- NOTE | 2025-01-31 06:57 | P.HPUD_ITS ---
Surgery/Procedure H&P Update DATE OF PROCEDURE: January 31, 2025 DATE H&P PERFORMED: 01/25/25 H&P UPDATE INFORMATION: I have reviewed H&P completed within last 30 days, I have examined patient prior to procedure, H&P is in [facility] EMR on date indicated and Risks and benefits of the procedure reviewed PREOP DIAGNOSIS: Carpal tunnel syndrome, right PLANNED PROCEDURE: Operation Date: 01/31/25 07:00 Proposed Procedures p Carpal Tunnel Release(Right) - Harleen Jensen MD Related Problem List Diagnoses (1) Carpal tunnel syndrome on right:
[2025-01-31] MEDS: ceFAZolin 2,000 mg SDV 2000 MG IVP (07:00)
[2025-01-31] MEDS: BUPivacaine 0.5% INJ 30 mL XX (07:25)
--- NOTE | 2025-01-31 07:46 | P.OP_ITS ---
Operative Report Date of procedure: January 31, 2025 Pre-op diagnosis: Right carpal tunnel syndrome Post-op diagnosis: Right carpal tunnel syndrome Post-op findings: Significant compression across carpal canal Procedure done: Right carpal tunnel release Implants: None Specimens removed/disposition: None Pathology: None Surgeon: Harleen Jensen MD Crab Meat Processor: None Anesthesia: General (Per LMA, ASA 2) Estimated blood loss (mL): 1 Tourniquet time (min): 14 (At 250 mmHg) IV fluids (mL): 400 Urine output (mL): 0 (No Cason) Complications: None Findings: Significant compression across the carpal canal Condition: stable Disposition: PACU (Then return to same-day surgery for discharge to home) Brief History: This 29-year-old woman presented to the office with complaints of bilateral carpal tunnel syndrome. She also had some swelling on the dorsal surface of the right hand. An MRI was obtained, and there were no significant abnormalities. Nerve conduction study demonstrated abnormal median nerves bilaterally consistent with bilateral carpal tunnel syndrome. After discussion in the office, the patient wished to proceed with carpal tunnel release. Risks and complications were discussed with her. Consents were signed and questions were answered. Procedure: The patient was brought to the operating theater. The patient had a general anesthesia per LMA, ASA 2 which was well-tolerated. Following exsanguination, the tourniquet was elevated to 250 mmHg for a total tourniquet time of 14 minutes. The patient was also given Ancef 2 g preoperatively. The arm was then prepped and draped with DuraPrep in usual fashion with the arm draped free. A surgical pause was performed. At the time of the surgical pause, we confirmed the site and side of surgery. We also confirmed the patient's identity, appropriate and timely administration of preoperative antibiotics and preoperative surgical markings. An incision was then made along the thenar crease. The incision crossed the wrist joint in a curvilinear fashion. Dissection continued through skin and soft tissues using a scalpel. The palmaris longus was identified along with the transverse carpal ligament. Each of these was released carefully to avoid injury to the median nerve. We were able to dissect gently into the carpal canal which was noted to be quite tight with significant compression across the median nerve. The nerve was visualized and was an hourglass shape. The canal was subsequently palpated to assure there was no bony encroachment upon the canal. There was a quite thickened fibrous tissue within the canal, and this was opened longitudinally as well. The canal was then palpated distally and proximally to assure that my small finger was passed easily without impingement. Finding this to be so, attention was directed to closure. The wound was irrigated with ropivacaine plain. It was then closed with 3-0 nylon in an interrupted mattress fashion. Sterile dressing was then placed consisting of OpSite, fluffed fluffs, sterile soft roll, and an Kevin wrap. The tourniquet was released after 14 minutes. There were no complications. There were no specimens. The procedure was well tolerated. Plan is the patient will be discharged home. Related Problem List Diagnoses (1) Carpal tunnel syndrome on right:
[2025-01-31] MEDS: fentaNYL 50 mcg/mL INJ 2mL IVP (07:57)
[2025-01-31] MEDS: scopolamine 1 mg PATCH 1 PATCH TRANSDERMA (08:01)
[2025-01-31] MEDS: ondansetron 2 mg/ML SDV 2 mL 4 MG IVP (08:08)
--- NOTE | 2025-01-31 09:22 | ANE.PACU2 ---
Inpatient post-anesthesia follow up: Airway intact: Yes Vital signs: Temperature 97.2 F Pulse Rate 71 Respiratory Rate 18 Blood Pressure 99/58 Pulse Oximetry 98 Oxygen Delivery Me thod Room Air Oxygen Flow Rate 6 Fraction of Inspir ed Oxygen Hydration adequate: Yes Nausea and vomiting: No Pain level: 1 Mental status: Baseline
== END 2025-01-31 09:22 | disposition home or self-care (01) ==
PROVIDERS: Student in an Organized Health Care Education/Training Program; PCP Family Medicine; Visit Provider Specialist
PROC: (CPT 64721; principal; 2025-01-31 07:00)
DX: G56.03 Carpal tunnel syndrome, bilateral upper limbs (principal); Z79.899 Other long term (current) drug therapy; Z79.85 Long-term (current) use of injectable non-insulin antidiabetic drugs; Z88.8 Allergy status to other drugs, medicaments and biological substances; F17.290 Nicotine dependence, other tobacco product, uncomplicated
CPT/HCPCS: 64721; 81025; J0131; J0690; J1100; J2405; J2704; J3010; J3490; J7030; J9999

== ENCOUNTER 2025-02-13 15:11 | Outpatient (CLI) | payer MEDICARE, MEDICAID, SELFPAY | END 2025-02-13 15:12 | disposition home or self-care (01) | LOC: SPT 15:11 | PROVIDERS: PCP Family Medicine; Visit Provider Specialist | DX: Z46.89 Encounter for fitting and adjustment of other specified devices (principal); G56.03 Carpal tunnel syndrome, bilateral upper limbs | CPT/HCPCS: 97760; 99214; L3908 ==

== ENCOUNTER 2025-03-05 05:40 | Day surgery (SDC) | payer MEDICARE, MEDICAID, SELFPAY ==
[2025-03-05] VITALS (10 sets, daily range): BP systolic 104–144; BP diastolic 54–69; PULSE 52–67; RESP 12–17; TEMP 36.1–36.3; O2SAT 95–100
[2025-03-05] MEDS: sodium chloride 0.9% 1,000 ML 30 ML IV (06:13)
[2025-03-05] MEDS: acetaminophen 1,000 MG/100 ML PIGGYBACK 400 MG IV (06:18)
[2025-03-05] MEDS: gabapentin 300 mg Capsule PO (06:18)
[2025-03-05] MEDS: famotidine 20 mg/2 mL INJ IVP (06:28)
[2025-03-05 06:31] LABS: OR HCG Qualitative Urine Negative (Negative)
--- NOTE | 2025-03-05 06:38 | ANES.PREANE2 ---
Pre-Anesthetic Assessment Height/Weight: Height 1.47 m Weight 87.997 kg Temp Pulse Resp BP Pulse Ox O2 Del Method 97.4 F L 63 16 104/54 98 Room Air 03/05/25 05:57 03/05/25 05:57 03/05/25 05:57 03/05/25 05:57 03/05/25 05:57 03/05/25 05:57 Operation Date: 03/05/25 07:00 Proposed Procedures p Carpal Tunnel Release(Left) - Harleen Jensen MD Familial anesthetic complications: None Was Beta Camille taken within 24 hours: N/A Was Clonidine taken within 24 hours: N/A Last intake: Intake Last Liquid Date 03/04/25 Last Liquid Time 23:59 Last Solid Date 03/04/25 Last Solid Time 17:00 Social Tobacco and No alcohol vapes Exam alert, oriented x 3, clear to auscultation bilaterally and regular rate & rhythm Airway Dentition: other (none) CV/HEM SVT Anesthetic Plan ASA status: 3 Anesthesia: General Risk of > 500 ml blood loss (7ml/kg in children): No Medications/Allergies Home Medications ?Medication ?Instructions ?Recorded ?Confirmed ?Last Taken ?Type albuterol sulfate 90 mcg/actuation 2 puff inhalation QID PRN 01/20/23 03/05/25 Unknown History aerosol inhaler Shortness Of Breath fluticasone propionate 50 2 spray intranasal DAILY #16 grams 12/10/23 03/05/25 Unknown Rx mcg/actuation nasal spray,suspension (Flonase Allergy Relief) ibuprofen 600 mg tablet 600 mg PO TID PRN pain #30 tabs 12/10/23 03/05/25 Unknown Rx trazodone 50 mg tablet 50 mg PO BEDTIME PRN sleep #30 tabs 11/22/24 03/05/25 03/03/25 Rx bilateral cock up wrist splints #1 ea 12/19/24 03/05/25 Unknown Rx propranolol 20 mg tablet 20 mg PO TID PRN anxiety #90 tabs 01/28/25 03/05/25 01/30/25 Rx quetiapine 400 mg tablet,extended 400 mg PO .7 pm #30 tabs 01/28/25 03/05/25 03/03/25 Rx release 24 hr (Seroquel XR) tirzepatide (weight loss) 5 mg/0.5 5 mg SUBCUT .WEEKLY 01/28/25 03/05/25 02/20/25 History mL subcutaneous pen injector (Zepbound) topiramate 25 mg tablet (Topamax) 25 mg PO TID #90 tabs 01/28/25 03/05/25 03/04/25 Rx bilateral cock up wrist splints #1 ea 02/13/25 03/05/25 Unknown Rx Allergies Allergy/AdvReac Type Severity Reaction Status Date / Time diphenhydramine (From Allergy Mild ADR-Numbnes Verified 03/04/25 09:30 Benadryl) s 2-octyl cyanoacrylate Allergy Unknown Verified 03/04/25 09:30 aspirin Allergy ADR-Vomitin Verified 03/04/25 09:30 g naproxen Allergy ADR-Vomitin Verified 03/04/25 09:30 g prazosin AdvReac Severe ADR-Hyperte Verified 03/04/25 09:30 nsion dermabon Allergy Intermediate burning Uncoded 03/04/25 09:30 Current Medications Generic Name Dose Route Start Last Admin Trade Name Freq PRN Reason Stop Dose Admin Sodium Chloride 1,000 mls @ 30 mls/hr 03/05/25 05:45 03/05/25 06:13 Sodium Chloride 0.9% IV 03/06/25 05:44 30 mls/hr .Q24H VALENTINE Administration PFSH Anesthesia Medical History Generalized anxiety disorder with panic attacks Other stimulant dependence, in remission Early remission last use 09/01/23 IV Nicotine dependence due to vaping tobacco product Non-suicidal self harm as coping mechanism Attention-deficit hyperactivity disorder, predominantly hyperactive type Diagnosed as a child Schizoaffective disorder, bipolar type Post-traumatic stress disorder, chronic Psychiatric care SVT (supraventricular tachycardia) Surgical History No pertinent past surgical history Social History Smoking and tobacco/nicotine status: unknown if used tobacco/nicotine
--- NOTE | 2025-03-05 06:57 | P.HPUD_ITS ---
Surgery/Procedure H&P Update DATE OF PROCEDURE: March 05, 2025 DATE H&P PERFORMED: 02/13/25 H&P UPDATE INFORMATION: I have reviewed H&P completed within last 30 days, I have examined patient prior to procedure, No changes to prior documentation and H&P is in [facility] EMR on date indicated PLANNED PROCEDURE: Operation Date: 03/05/25 07:00 Proposed Procedures p Carpal Tunnel Release(Left) - Harleen Jensen MD Related Problem List Diagnoses (1) Carpal tunnel syndrome, left:
[2025-03-05] MEDS: ceFAZolin 2,000 mg SDV 2000 MG IVP (07:01)
[2025-03-05] MEDS: BUPivacaine 0.5% INJ 30 mL XX (07:49)
--- NOTE | 2025-03-05 08:17 | P.OP_ITS ---
Operative Report Date of procedure: March 05, 2025 Pre-op diagnosis: Left carpal tunnel syndrome Post-op diagnosis: Left carpal tunnel syndrome Post-op findings: Significant compression across carpal canal with erythema to the median nerve Procedure done: Left carpal tunnel release Implants: None Specimens removed/disposition: None Pathology: None Surgeon: Harleen Jensen MD Vehicle Glass Technician: None Anesthesia: General (Per LMA, ASA 3) Estimated blood loss (mL): 2 Tourniquet time (min): 23 (At 250 mmHg) IV fluids (mL): 200 Urine output (mL): 0 (No Cason) Complications: None Findings: Erythema and hourglass deformity to the median nerve. Condition: stable Disposition: PACU (Then return to same-day surgery for discharge to home) Brief History: This 29-year-old woman presented initially with complaints of bilateral carpal tunnel syndrome. She had nerve conduction studies which demonstrated abnormal bilateral median nerves. On January 31, 2025, she underwent right carpal tunnel release. She has recovered nicely from that and presents today for left carpal tunnel release. Risks and complications were discussed with her preoperatively. Consents were signed and questions were answered. Procedure: The patient was brought to the operating theater. The patient had a general anesthesia per LMA, ASA 3 which was well-tolerated. Following exsanguination, the tourniquet was elevated to 250 mmHg for a total tourniquet time of 23 minutes. The patient was also given Ancef 2 g preoperatively. The arm was then prepped and draped with DuraPrep in usual fashion with the arm draped free. A surgical pause was performed. At the time of the surgical pause, we confirmed the site and side of surgery. We also confirmed the patient's identity, appropriate and timely administration of preoperative antibiotics and preoperative surgical markings. An incision was then made along the thenar crease. The incision crossed the wris t joint in a curvilinear fashion. Dissection continued through skin and soft tissues using a scalpel. The palmaris longus was identified along with the transverse carpal ligament. Each of these was released carefully to avoid injury to the median nerve. We were able to dissect gently into the carpal canal which was noted to be quite tight with significant compression across the median nerve. The nerve was visualized and was an hourglass shape. The canal was subsequently palpated to assure there was no bony encroachment upon the canal. There was a quite thickened fibrous tissue within the canal, and this was opened longitudinally as well. The canal was then palpated distally and proximally to assure that my small finger was passed easily without impingement. Finding this to be so, attention was directed to closure. Patient had a small bleeder distally causing slight extension of the incision. This was easily cauterized. The wound was irrigated with ropivacaine plain. It was then closed with 3-0 nylon in an interrupted mattress fashion. Sterile dressing was then placed consisting of OpSite, fluffed fluffs, sterile soft roll, and an Kevin wrap. The tourniquet was released after 23 minutes. There were no complications. There were no specimens. The procedure was well tolerated. Plan is the patient will be discharged home. Related Problem List Diagnoses (1) Carpal tunnel syndrome, left:
[2025-03-05] MEDS: TRAMadol 50 mg Tablet PO (08:50)
--- NOTE | 2025-03-05 09:30 | ANE.PACU2 ---
Inpatient post-anesthesia follow up: Airway intact: Yes Vital signs: Temperature 97.0 F Pulse Rate 52 Respiratory Rate 12 Blood Pressure 141/62 Pulse Oximetry 98 Oxygen Delivery Me thod Room Air Oxygen Flow Rate 6 Fraction of Inspir ed Oxygen Hydration adequate: Yes Nausea and vomiting: No Pain level: 1 Mental status: Baseline
== END 2025-03-05 09:30 | disposition home or self-care (01) ==
PROVIDERS: Anesthesiology; PCP Family Medicine; Visit Provider Specialist
PROC: (CPT 64721; principal; 2025-03-05 07:00)
DX: G56.02 Carpal tunnel syndrome, left upper limb (principal); Z88.8 Allergy status to other drugs, medicaments and biological substances; F17.290 Nicotine dependence, other tobacco product, uncomplicated; Z79.899 Other long term (current) drug therapy; Z79.85 Long-term (current) use of injectable non-insulin antidiabetic drugs
CPT/HCPCS: 64721; 81025; J0131; J0690; J1100; J2250; J2405; J2704; J3010; J3490; J7030; J9999

== ENCOUNTER 2025-05-18 19:52 | Emergency (ER) | payer MEDICARE, MEDICAID, SELFPAY ==
--- OUTSIDE RECORDS SUMMARY | 2003-10-23 19:00 | XMS_ITS | Continuity of Care Document ---
Author Name [facility] Address [address] [place] [address] Organization [facility] Care Team Providers Care Neon Installer Name Role Phone [facility] Unavailable Unavailable Allergies, Adverse Reactions, Alerts Substance Category Reaction Severity Reaction type Status Date Reported Comments Source naproxen Assertion [facility] aspirin Assertion Drug allergy Active [facility]
--- NOTE | 2025-05-18 19:55 | XRR_ITS ---
PROCEDURE INFORMATION: Exam: XR Right Knee Exam date and time: 05/18/2025 8:23 PM Age: 30 years old Clinical indication: Pain; Knee; Right; Additional info: Injury TECHNIQUE: Imaging protocol: Radiologic exam of the right knee. Views: 3 views. COMPARISON: No relevant prior studies available. FINDINGS: Bones/joints: Normal. Soft tissues: Normal. XR/XR knee RT 3V* [id number] IMPRESSION: No acute findings.
[2025-05-18 19:58] VITALS: BP 95/55; PULSE 85; RESP 18; TEMP 36.8; O2SAT 98; BMI 38.8
--- OUTSIDE RECORDS SUMMARY | 2025-05-18 19:59 | XMS_ITS | Clinical Summary ---
Author Organization [facility] Address [address] [facility] [address] [facility] [address] [place] [address] Phone Care Team Providers Care Best Second Jobs Name Role Phone Unavailable Primary Care Provider Unavailabl e Allergies Active Allergy Reactions Criticality Noted Date Comments Aspirin Nausea and Vomiting Low 07/09/2024 Diphenhydramine-Zinc Acetate Rash Low 024 Medications QUEtiapine (SEROquel XR) 400 mg Extended Release 24 hour tablet Take 400 mg by mouth late in the day. Active traZODone (DESYREL) 50 mg tablet Take 50 mg by mouth daily at bedtime. Active LORazepam (ATIVAN) 0.5 mg tablet Take 0.5 mg by mouth every 6 hours as needed for Anxiety. Active topiramate (TOPAMAX) 25 mg tablet Take 25 mg by mouth daily. Active Active Problems Problem Noted Date Diagnosed Date Acute viral syndrome 09/10/2024 Social History Tobacco Use Types Packs/Day Years Used Date Smoking Tobacco: Never Smokeless Tobacco: Never Tobacco Cessation:Counseling Given: Not Answered Alcohol Use Standard Drinks/Week Comments Not Currently 0 (1 standard drink = 0.6 oz pur e alcohol) Comments No Sex and Gender Information Value Date Recorded Sex Assigned at Not on file Legal Sex Female 9:29 PM CDT Gender Identity Not on file Sexual Orientation Not on file Last Filed Vital Signs Vital Sign Reading Time Taken Comments Blood Pressure 118/64 09/10/2024 5:30 PM [employer] Pulse 104 09/10/2024 5:45 PM [employer] Temperature 37.4 C (99.4 F) 09/10/2024 4:54 PM [employer] Respiratory Rate 18 09/10/2024 5:45 PM [employer] Oxygen Saturation 96% 09/10/2024 5:45 PM [employer] Inhaled Oxygen Concentration - - Weight 89.4 kg (197 lb 3.2 oz) 09/10/2024 4:54 P M [employer] Height 149.9 cm (4' 11 ) 09/10/2024 4:54 PM [employer] Body Mass Index 39.83 09/10/2024 4:54 PM [employer] Plan of Treatment Health Maintenance Due Date Last Done Comments HPV VACCINES (1 - 3-dose series) 2008 DTAP/TDAP/TD VACCINES (1 - Tdap) 2012 HEPATITIS B VACCINES (1 of 3 - 19+ 3-dose series) 04/23 HPV/Cotest (21-29) 2014 CERVICAL CANCER SCREENING 2023 HPV/Cotest (30-65) 2023 PAP SMEAR 2023 INFLUENZA VACCINE (#1) 2025 Insurance [employer]
--- OUTSIDE RECORDS SUMMARY | 2025-05-18 20:00 | XMS_ITS | Patient Health Record ---
Author Organization [facility] Address [address] [facility] [address] [place] [address] Care Team Providers Care Door Frame Builder Name Role Phone AvelinaErick godoy Unavailable [phone] Medina Correa Unavailable Unavailable Reason For Referral No Information Plan Of Treatment No Information
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
[2025-05-18] MEDS: HYDROcodone-acetaminophen 5-325 mg Tablet 1 TAB PO (22:28)
== END 2025-05-18 22:26 | disposition home or self-care (01) ==
PROVIDERS: Emergency Provider Physician Assistant; PCP Family Medicine
DX: M23.8X1 Other internal derangements of right knee (principal); Z72.0 Tobacco use
CPT/HCPCS: 73562; 99283; J9999

== ENCOUNTER 2025-06-26 10:50 | Outpatient (CLI) | payer MEDICARE, MEDICAID, SELFPAY ==
--- NOTE | 2025-06-26 10:54 | MR_ITS ---
WS: [id number] MRI RIGHT KNEE NONCONTRAST TECHNIQUE: Axial PD, coronal PD fat sat, coronal PD, sagittal PD, and sagittal PD fat-sat images obtained. CLINICAL INFORMATION: RIGHT KNEE PAIN COMPARISON: None. FINDINGS: Distal quadriceps and patella tendons are intact. Normal ACL and PCL. Normal bone marrow signal in the femoral condyles and tibial plateau. Normal fibula head. Medial and lateral meniscus appear intact. No acute appearing meniscal tears. Normal patella. Normal medial and lateral patellar retinaculum. Normal popliteal fossa. Normal medial and lateral collateral ligaments. No other suspicious findings. MR/MR knee RT wo con* [id number] IMPRESSION: Some images degraded by motion artifact 1. Normal ACL and PCL. 2. Medial and lateral meniscus are normal in appearance considering motion art ifact. 3. Normal bone marrow signal in the patella. 4. No other suspicious findings. Outbridge grading: grade I: focal areas of hyperintensity with normal contour
== END 2025-06-26 10:51 | disposition home or self-care (01) ==
LOC: RAD 10:51
PROVIDERS: PCP Family Medicine; Visit Provider Family Medicine
DX: M25.561 Pain in right knee (principal); M23.8X9 Other internal derangements of unspecified knee
CPT/HCPCS: 73721

== ENCOUNTER → 2025-08-12 12:54 | Outpatient (BNVA) | payer MEDICARE, MEDICAID, SELFPAY | PROVIDERS: PCP Family Medicine; Referring Provider Family Medicine; Visit Provider Internal Medicine Cardiovascular Disease | DX: I47.10 Supraventricular tachycardia, unspecified (principal) | CPT/HCPCS: 93005 ==

== ENCOUNTER 2025-08-13 19:51 | Emergency (ER) | payer MEDICARE, MEDICAID, SELFPAY ==
--- NOTE | 2025-08-13 19:55 | ED_ITS ---
HPI - General Adult 2 General: Chief complaint: Neuro Symptoms/Deficit Stated complaint: Face is tingling\Pressure Left Side Time Seen by Provider: 08/13/25 19:54 History of Present Illness: 30yo F w/pmhx of schizoaffective disorde r, migraines, former methamphetamine abuse, asthma presents with a chief complaint of left facial tingling and paresthesia and numbness. Associated with this was also some slurring of the speech per patient and significant other at bedside. Speech difficulty/dysarthria has resolved at this time and I do not appreciate dysarthria on my exam. She states that symptom onset was at 19:00 this evening. She also reports paresthesia in LUE from elbow distally and on the bottom of her L foot. Patient states that she's had intermittent L facial tingling for the past one month but this is the longest it's lasted. It usually lasts 5-15min. She also reports blurry vision. After onset of symptoms, she has developed a gradual 8/10 TEMPLETON on the left side though this is different from her usual migraines in that it is dull and pressure like. Usually, her migraine is occipital and sharp and stabbing. She has not been ill with a fever, neck pain, upper respiratory symptoms and denies chest pain, shortness of breath, abdominal pain, nausea, vomiting, diarrhea or dysuria. She denies confusion, double vision, loss of vision, change or loss of hearing, difficulty with swallowing, difficulty with coordination or ambulation, extremity weakness. Related Data Home Medications ?Medication ?Instructions ?Recorded ?Confirmed albuterol sulfate 90 mcg/actuation 2 puff inhalation Q ID PRN 01/20/23 08/06/25 aerosol inhaler Shortness Of Breath Previous Rx's ?Medication ?Instructions ?Recorded bilateral cock up wrist splints #1 ea 12/19/24 bilateral cock up wrist splints #1 ea 02/13/25 propranolol 20 mg tablet 20 mg PO TID PRN anxiety #90 tabs 08/06/25 quetiapine 400 mg tablet,extended 400 mg PO .7 pm #30 tabs 08/06/25 release 24 hr (Seroquel XR) quetiapine 50 mg tablet (Seroquel) 50 mg PO BID PRN an xiety/psychosis 08/06/25 #60 tabs topiramate 100 mg tablet 100 mg PO TID@ #90 t abs 08/06/25 trazodone 50 mg tablet 50 mg PO BEDTIME PRN sleep # 30 tabs 08/06/25 Allergies Allergy/AdvReac Type Severity Reaction Status Date / Time diphenhydramine (From Allergy Mild ADR-Numbnes Verified 08/13/25 20:07 Benadryl) s 2-octyl cyanoacrylate Allergy Unknown Verified 08/13/25 20:07 aspirin Allergy ADR-Vomitin Verified 08/13/25 20:07 g naproxen Allergy ADR-Vomitin Verified 08/13/25 20:07 g prazosin AdvReac Severe ADR-Hyperte Verified 08/13/25 20:07 nsion dermabon Allergy Intermediate burning Uncoded 08/13/25 20:07 [facility] PFSH: Medical History (Updated 08/13/25 @ 22:24 by Lindsay Carolina MD) Generalized anxiety disorder with panic attacks Other stimulant dependence, in remission Sustained remission last use 09/01/23 IV Nicotine dependence due to vaping tobacco product Non-suicidal self harm as coping mechanism Attention-deficit hyperactivity disorder, predominantly hyperactive type Diagnosed as a child Schizoaffective disorder, bipolar type Post-traumatic stress disorder, chronic Psychiatric care SVT (supraventricular tachycardia) Surgical History H/O left knee surgery Social History (Updated 05/18/25 @ 23:52 by AUNDREA Hdez) Smoking and tobacco/nicotine status: current every day tobacco/nicotine user Physical Exam 2 Narrative: EXAM NARRATIVE: Vital signs were reviewed. Patient is alert and oriented. Patient is breathing comfortably, no increased WOB or accessory muscle use. SpO2 is above 95% on RA. Patient has clear lungs b/l, no rhonchi, wheezing or crackles. No hypotension or tachycardia. Abdomen is soft, nondistended and nontender. Patient is moving all extremities, no deformity or gross injury. No lower extremity edema or asymmetry. Neuro: Awake, alert, strength equal bilaterally. No sensory deficit. Able to perform FNF, heel to aguilar. Ambulatory. CRANIAL NERVES: II: Pupils equal and reactive, III, IV, : EOM intact, no gaze preference or deviation, no nystagmus. V: normal sensation in V1, V2, and V3 segments on right, subjective paresthesia on left w/light touch. VII: no asymmetry, no nasolabial fold flattening VIII: normal hearing to speech IX, X: normal palatal elevation, no uvular deviation XI: 5/5 head turn and 5/5 shoulder shrug bilaterally XII: midline tongue protrusion Course 2 Vital Signs: Vital signs: Vital Signs Temperature 98.5 F 08/13/25 20:02 Pulse Rate 79 08/13/25 22:00 Respiratory Rate 16 08/13/25 22:00 Blood Pressure 105/60 08/13/25 22:00 Pulse Oximetry 98 08/13/25 22:00 Oxygen Delivery Me thod Room Air 08/13/25 20:56 MDM - General Adult Medical Decision Making 30-year-old female presenting with a chief complaint of left facial paresthesia, transient dysarthria, blurry vision, paresthesia of left upper extremity (elbow to distal) and bottom of L foot, followed w/onset of TEMPLETON. Differential diagnosis includes, but is not limited to, migraine, status migrainosus, complex migraine, cluster headache, tension headache, CVA, MS, venous sinus thrombosis, pseudotumor cerebri, other. On exam, she's HDS. Aside from subjective paresthesia of the L face, she does not appear to have any additional focal neurologic deficits. Given that CVA remains a possibility, she was evaluated per stroke alert protocol. She was discussed w/neurologist convalescent sitter, Dr. Draper, who recommended CT head, treatment w/migraine cocktail and outpatient evaluation if sx resolve and she has negative imaging. CT head is negative for acute findings. CTA head/neck does not show large vessel occlusion or stenosis of the vessels. Visual acuity is 20/40 in both eyes. Her symptoms have nearly completely resolved w/migraine cocktail. I suspect her symptoms are due to a migraine w/aura. She may need out patient MRI as other diagnoses such as MS remain on the differential. I counseled patient on supportive care at home, gave return precautions and advised her to see her primary care physician on an outpatient basis to discuss further diagnostic imaging. Patient expressed understanding, is agreeable with plan and feels well enough to go home. Lab Data 08/13/25 20:05 08/13/25 20:[address] 08/13/25 20:33 IMPRESSION: 1. No acute intracranial abnormality. ASSESSMENT: ASPECTS ([place] Stroke Program Early CT Score) is 10. ADDENDUM: 08/13/252054 The findings were verbally communicated by telephone with Dr. Carolina at 8:53 PM CDT on 08/13/2025. Head/Neck CTA 08/13/25 20:33 IMPRESSION: 1. No evidence of large vessel occlusion or acute thrombosis in the head. IMPRESSION: 1. No evidence of acute thrombosis or hemodynamically significant stenosis in the neck. REFERENCES: NASCET CRITERIA. The degree of stenosis in the cervical segment of the internal carotid artery is based on NASCET criteria. Normal is no stenosis. Mild is less than 50% stenosis. Moderate is 50-69% stenosis. Severe is 70% to 99% stenosis. Total occlusion is no detectable patent lumen. Laboratory Results WBC 7.38 10^3/uL (3.29-11.43) 08/13/25 20:05 RBC 4.54 10^6/uL (3.85-5.65) 08/13/25 20:05 Hgb 12.00 g/dL (11.27-16.99) 08/13/25 20:05 Hct 38.1 % (36-47) 08/13/25 20:05 MCV 83.9 fl (85-98) L 08/13/25 20:05 MCH 26.4 pg (27-33) L 08/13/25 20:05 MCHC 31.5 g/dL (30-55) 08/13/25 20:05 RDW 13.4 % (12.1-15.1) 08/13/25 20:05 Plt Count 261 10^3/cmm (157-399) 08/13/25 20:05 MPV 12.6 fL (7.4-10.4) H 08/13/25 20:05 Neut % (Auto) 69.2 % 08/13/25 20:05 Lymph % (Auto) 20.7 % 08/13/25 20:05 [place] % (Auto) 8.4 % 08/13/25 20:05 Eos % (Auto) 0.8 % 08/13/25 20:05 Baso % (Auto) 0.5 % 08/13/25 20:05 Neut # (Auto) 5.10 10^3/uL (1.8-7.7) 08/13/25 20:05 Lymph # (Auto) 1.5 10^3/uL (0.8-4.8) 08/13/25 20:05 [place] # (Auto) 0.6 10^3/uL (0.2-0.9) 08/13/25 20:05 Eos # (Auto) 0.1 10^3/uL (0.0-0.8) 08/13/25 20:05 Baso # (Auto) 0.0 10^3/uL (0.0-0.1) 08/13/25 20:05 Nucleated RBC % (auto) 0 % 08/13/25 20:05 Nucleated RBCs # 0.0 /100WBC 08/13/25 20:05 Sodium 138 mmol/L (136-145) 08/13/25 20:05 Potassium 3.6 mmol/L (3.5-5.1) 08/13/25 20:05 Chloride 102 mmol/L (98-107) 08/13/25 20:05 Carbon Dioxide 24 mmol/L (22-29) 08/13/25 20:05 Anion Gap 15.6 (5-19) 08/13/25 20:05 BUN 17 mg/dL (6-20) 08/13/25 20:05 Creatinine 1.1 mg/dL (0.5-0.9) H 08/13/25 20:05 GFR Calculation 57.6 mL/min (90-130) L 08/13/25 20:05 Glucose 84 mg/dL (65-115) 08/13/25 20:05 POC Glucose 90 mg/dL (70-110) 08/13/25 20:37 Calculated Osmolality 287 mOsm/kg (285-295) 08/13/25 20:05 Calcium 9.2 mg/dL (8.5-10.5) 08/13/25 20:05 All radiology interpretation(s) finalized by discharge EKG Data EKG 1: Interpretation: Normal sinus rhythm with a heart rate of 90, normal axis, normal intervals, no STEMI. Computer generated interpretation: Head CT 08/13/25 20:33 IMPRESSION: 1. No acute intracranial abnormality. ASSESSMENT: ASPECTS ([place] Stroke Program Early CT Score) is 10. ADDENDUM: 08/13/252054 The findings were verbally communicated by telephone with Dr. Carolina at 8:53 PM CDT on 08/13/2025. Head/Neck CTA 08/13/25 20:33 IMPRESSION: 1. No evidence of large vessel occlusion or acute thrombosis in the head. IMPRESSION: 1. No evidence of acute thrombosis or hemodynamically significant stenosis in the neck. REFERENCES: NASCET CRITERIA. The degree of stenosis in the cervical segment of the internal carotid artery is based on NASCET criteria. Normal is no stenosis. Mild is less than 50% stenosis. Moderate is 50-69% stenosis. Severe is 70% to 99% stenosis. Total occlusion is no detectable patent lumen. Discharge Plan Discharge Patient Disposition: Home Clinical Impression: Migraine with aura Qualifiers: Status migrainosus presence: without status migrainosus Intractability: not intractable Qualified Code(s): G43.109 - Migraine with aura, not intractable, without status migrainosus Condition: Stable Prescriptions: No Action (DME) bilateral cock up wrist splints See Rx Instructions .Route .MEDSUPPLY Qty: 1 0RF Rx Instructions: As directed (DME) bilateral cock up wrist splints See Rx Instructions .Route .MEDSUPPLY Qty: 1 0RF Rx Instructions: As directed trazodone 50 mg tablet 50 mg PO BEDTIME PRN (Reason: sleep) Qty: 30 6RF Rx Instructions: may take half to one tablet at bedtime as needed for sleep topiramate 100 mg tablet 100 mg PO TID@,15,21 Qty: 90 3RF Rx Instructions: Take one tablet at 9 am, 3 pm and 9 pm quetiapine [Seroquel XR] 400 mg tablet extended release 24 hr 400 mg PO .7 pm Qty: 30 6RF Rx Instructions: Take one tablet at 7 pm quetiapine [Seroquel] 50 mg tablet 50 mg PO BID PRN (Reason: anxiety/psychosis) Qty: 60 3RF Rx Instructions: May take one tablet twice per day as needed for anxiety/psychosis propranolol 20 mg tablet 20 mg PO TID PRN (Reason: anxiety) Qty: 90 3RF Rx Instructions: May take one tablet three times per day as needed for anxiety albuterol sulfate 90 mcg/actuation Hfa Aerosol Inhaler 2 puff INHALATION QID PRN (Reason: Shortness Of Breath) Discharge Orders: Discharge ED (Routine); Ordered 08/13/25 Ordered By: Lindsay Carolina Referrals: Amy Rascon DO [Primary Care Provider, MEMBERSHIP SALES REPRESENTATIVE] Patient Instructions: Opioid Safety, Pain Management, Patient Portal & [place] Instructions Activity Restrictions/Additional Instructions: Please continue to monitor your condition closely at home. If your condition worsens or additional concerns arise, please return to the emergency department for reassessment. Please follow-up with your primary care physician within the next 72 hours. Please talk to your primary care physician about MRI of your brain if you continue to have changes in sensation to your face and extremities. Print Language: Lao Coding Level of Care Code ED Oil Burner Technician for Audra Sequeira
--- OUTSIDE RECORDS SUMMARY | 2025-08-13 19:59 | XMS_ITS | Clinical Summary ---
Author Organization [facility] Address [address] [place] [address] Phone Care Team Providers Care Telecom Field Technician Name Role Phone Unavailable Primary Care Provider [...] drink = 0.6 oz pur e alcohol) Feeling Safe Answer Date Recorded Are you in a relationship wi th someone who hurts you emotionally and/or physically? No 09/10/2024 Comments No Sex and Gender Information Value Date Recorded Sex Assigned at Not on file Legal Sex Female 9:29 PM CDT Gender Identity Not on file Sexual Orientation Not on file Last Filed Vital Signs Vital Sign Reading Time Taken Comments Blood Pressure 118/64 09/10/2024 5:30 PM PATCH MACHINE OPERATOR Pulse 104 09/10/2024 5:45 PM PATCH MACHINE OPERATOR Temperature 37.4 C (99.4 F) 09/10/2024 4:54 PM PATCH MACHINE OPERATOR Respiratory Rate 18 09/10/2024 5:45 PM PATCH MACHINE OPERATOR Oxygen Saturation 96% 09/10/2024 5:45 PM PATCH MACHINE OPERATOR Inhaled Oxygen Concentration - - Weight 89.4 kg (197 lb 3.2 oz) 09/10/2024 4:54 P M PATCH MACHINE OPERATOR Height 149.9 cm (4' 11 ) 09/10/2024 4:54 PM PATCH MACHINE OPERATOR Body Mass Index 39.83 09/10/2024 4:54 PM PATCH MACHINE OPERATOR Plan of Treatment Health Maintenance Due Date Last Done Comments DTAP/TDAP/TD VACCINES (1 - Tdap) 2012 HEPATITIS B VACCINES (1 of 3 - 19+ 3-dose series) 04/23 HPV/Cotest (21-29) 2014 HPV VACCINES (1 - 3-dose SCDM series) 2020 CERVICAL CANCER SCREENING 2023 HPV/Cotest (30-65) 2023 PAP SMEAR 2023 INFLUENZA VACCINE (#1) [address] [facility] PLAN MEDICAID
--- NOTE | 2025-08-13 20:00 | ECG_ITS ---
[facility]: 2025-08-13 Pat Name: Matt Castaneda Department: Room: Gender: Female Dental Office Coordinator: : 1995 Requested By: Lindsay Carolina Order Number: [id number] Gagan MD: Susan Garcia M.D. Measurements Intervals Basom Rate: 90 P: 36 OH: 155 QRS: 8 QRSD: 80 T: 19 QT: 364 QTc: 446 Interpretive Statements SINUS RHYTHM POSSIBLE ANTERIOR MYOCARDIAL INFARCTION , PROBABLY OLD [30 ms Q WAVE IN V3/V4, OR R < 0.2 mV IN V4] Poor R wave progression Compared to ECG 08/12/2025 13:01:20 Myocardial infarct finding now present Electronically Signed On 08-14-2025 22:54:54 CDT by Susan Garcia M.D. [id number]
--- OUTSIDE RECORDS SUMMARY | 2025-08-13 20:00 | XMS_ITS | Patient Health Record ---
Author Organization [facility] Address [address] [place] [address] Care Team Providers Care Hand Button Splitter Name Role Phone AvelinaErick godoy Unavailable [phone] Medina Correa Unavailable Unavailable Reason For Referral No Information Plan Of Treatment No Information
[2025-08-13 20:02] VITALS: BP 116/81; PULSE 100; RESP 18; TEMP 36.9; O2SAT 97; BMI 38.9
--- NOTE | 2025-08-13 20:33 | CTR_ITS ---
PROCEDURE INFORMATION: Exam: CT Head Without Contrast Exam date and time: 08/13/2025 8:39 PM Age: 30 years old Clinical indication: Stroke-like symptoms; Other: Left facial numbness/paresthesia; Additional info: L facial numbness, dysarthria TECHNIQUE: Imaging protocol: Computed tomography of the head without contrast. Radiation optimization: All CT scans at this facility use at least one of these dose optimization techniques: automated exposure control; mA and/or kV adjustment per patient size (includes targeted exams where dose is matched to clinical indication); or iterative reconstruction. Other technique: STROKE PROTOCOL was implemented. COMPARISON: CT head wo con* [id number] 03/23/2024 6:54 PM RADIATION DOSE METRICS: Total DLP (mGy-cm): 1024.78 FINDINGS: Brain: No evidence of intra-axial or extra-axial hemorrhage. No mass effect or midline shift. Blake-white differentiation is maintained. Basilar cisterns are patent. Cerebral ventricles: No hydrocephalus. Paranasal sinuses: The visualized paranasal sinuses are well aerated. Mastoid air cells: The visualized mastoids and middle ears are clear. Bones: Calvarium is intact. No evidence of acute fracture. Soft tissues: No gross soft tissue abnormality. CT/CT head wo con* [id number] IMPRESSION: 1. No acute intracranial abnormality. ASSESSMENT: ASPECTS ([place] [facility] Early CT Score) is 10.
--- NOTE | 2025-08-13 20:33 | CTR_ITS ---
PROCEDURE INFORMATION: Exam: CTA Head With Contrast, Arteriography Exam date and time: 08/13/2025 8:41 PM Age: 30 years old Clinical indication: Numbness; Additional info: L facial numbness, dysarthria TECHNIQUE: Imaging protocol: Computed tomographic angiography of the head with contrast. Exam focused on the arteries. 3D rendering (Not supervised by radiologist): MIP and/or 3D reconstructed images were created by the technologist. Radiation optimization: All CT scans at this facility use at least one of these dose optimization techniques: automated exposure control; mA and/or kV adjustment per patient size (includes targeted exams where dose is matched to clinical indication); or iterative reconstruction. Contrast material: OMNI 350; Contrast volume: 100 ml; Contrast route: INTRAVENOUS (IV); COMPARISON: CT head wo con* [id number] 08/13/2025 8:39 PM RADIATION DOSE METRICS: Total DLP (mGy-cm): 438.83 FINDINGS: ANTERIOR CIRCULATION: Right internal carotid artery: Patent. Right middle cerebral artery: Patent. Right anterior cerebral artery: Patent. Left internal carotid artery: Patent. Left middle cerebral artery: Patent. Left anterior cerebral artery: Patent. POSTERIOR CIRCULATION: Right vertebral artery: Patent. Left vertebral artery: Patent. Basilar artery: Patent. Right posterior cerebral artery: Patent. Left posterior cerebral artery: Patent. PROCEDURE INFORMATION: Exam: CTA Neck With Contrast Exam date and time: 08/13/2025 8:41 PM Age: 30 years old Clinical indication: Numbness; Additional info: L facial numbness, dysarthria TECHNIQUE: Imaging protocol: Computed tomographic angiography of the neck with contrast. Exam focused on the cervical segments of the vasculature. 3D rendering (Not supervised by radiologist): MIP and/or 3D reconstructed images were created by the technologist. Radiation optimization: All CT scans at this facility use at least one of these dose optimization techniques: automated exposure control; mA and/or kV adjustment per patient size (includes targeted exams where dose is matched to clinical indication); or iterative reconstruction. Contrast material: OMNI 350; Contrast volume: 100 ml; Contrast route: INTRAVENOUS (IV); COMPARISON: CT head wo con* [id number] 08/13/2025 8:39 PM RADIATION DOSE METRICS: Total DLP (mGy-cm): 438.84 FINDINGS: Right common carotid artery: Patent. No evidence of hemodynamically significant stenosis. Right internal carotid artery: Patent. No evidence of hemodynamically significant stenosis. Right external carotid artery: Patent. Left common carotid artery: Patent. No evidence of hemodynamically significant stenosis. Left internal carotid artery: Patent. No evidence of hemodynamically significant stenosis. Left external carotid artery: Patent. Right vertebral artery: Patent. Left vertebral artery: Patent. Soft tissues: No gross soft tissue abnormality. No evidence of fluid collection or hematoma. Bones/joints: No evidence of acute fracture or subluxation of the cervical spine. CT/CT angio headneck* [id number] IMPRESSION: 1. No evidence of large vessel occlusion or acute thrombosis in the head. IMPRESSION: 1. No evidence of acute thrombosis or hemodynamically significant stenosis in the neck. REFERENCES: NASCET CRITERIA. The degree of stenosis in the cervical segment of the internal carotid artery is based on NASCET criteria. Normal is no stenosis. Mild is less than 50% stenosis. Moderate is 50-69% stenosis. Severe is 70% to 99% stenosis. Total occlusion is no detectable patent lumen.
[2025-08-13 20:42] LABS: Hematocrit 38.1 % (36-47); Hemoglobin 12.00 g/dL (11.27-16.99); Mean Corpuscular HGB Conc 31.5 g/dL (30-55); Mean Corpuscular Hemoglobin 26.4 pg (27-33); Mean Corpuscular Volume 83.9 fl (85-98); Nucleated Red Blood Cells % 0 %; Platelet Count 261 10^3/cmm (157-399); Red Blood Count 4.54 10^6/uL (3.85-5.65); White Blood Count 7.38 10^3/uL (3.29-11.43)
[2025-08-13] MEDS: iohexol 350 mg/mL 500 mL Btl (per mL) IV (20:44)
[2025-08-13 20:54] LABS: Anion Gap 15.6 (5-19); Blood Urea Nitrogen 17 mg/dL (6-20); Calcium 9.2 mg/dL (8.5-10.5); Carbon Dioxide 24 mmol/L (22-29); Chloride 102 mmol/L (98-107); Creatinine Clr Calc Pharmacy 101.4703; Glucose 84 mg/dL (65-115); Osmolality Calculated 287 mOsm/kg (285-295); Potassium 3.6 mmol/L (3.5-5.1); Sodium 138 mmol/L (136-145)
[2025-08-13 20:56] VITALS: BP 107/79; PULSE 89; RESP 16; O2SAT 100
[2025-08-13 21:37] VITALS: BP 105/60; PULSE 78; RESP 18; O2SAT 100
[2025-08-13 22:00] VITALS: BP 105/60; PULSE 79; RESP 16; O2SAT 98
== END 2025-08-13 22:35 | disposition home or self-care (01) ==
PROVIDERS: Emergency Provider Emergency Medicine; PCP Family Medicine
DX: G43.109 Migraine with aura, not intractable, without status migrainosus (principal); Z72.0 Tobacco use
CPT/HCPCS: 36415; 36416; 70450; 70496; 70498; 80048; 82962; 85025; 93005; 96374; 96375; 99285; J0780; J1885; J9999

== ENCOUNTER → 2025-10-02 13:51 | Outpatient (BNVA) | payer MEDICARE, MEDICAID, SELFPAY | PROVIDERS: PCP Family Medicine; Referring Provider Nurse Practitioner Psychiatric/Mental Health; Visit Provider Internal Medicine Cardiovascular Disease | DX: R94.31 Abnormal electrocardiogram [ECG] [EKG] (principal); R06.09 Other forms of dyspnea; F17.290 Nicotine dependence, other tobacco product, uncomplicated; Z82.49 Family history of ischemic heart disease and other diseases of the circulatory system; R07.9 Chest pain, unspecified; R06.02 Shortness of breath | CPT/HCPCS: 93005; 99204 ==

== ENCOUNTER 2025-10-08 11:39 | Outpatient (CLI) | payer MEDICARE, MEDICAID, SELFPAY ==
--- NOTE | 2025-10-08 11:54 | ECG_ITS ---
[facility] Date: 2025-10-08 Pat Name: Matt Castaneda Department: Room: Gender: Female Surg Tech: : 1995 Requested By: Carlo Thompson Order Number: [id number] Farah MD: RAYMOND LEACH Interpretive Statements Lung unchanged pre/post procedure; Intraprocedure shortess of breath; Symptoms resoled by discharge EXERCISE DATA: The patient was exercised by Dominick protocol. Baseline heart rate was 88 beats per minute. Baseline blood pressure was 108/83 millimeters of mercury. Target heart rate was 188 beats per minute. Maximum heart rate achieved was 162, which was 86 % of the target heart rate. Maximum blood pressure was 128/63 millimeters of mercury. Total exercise time was 6 minutes. Maximum METs achieved was 7.0, maximum VO2 was 24.5. The reason for ending the test was maximum effort achieved. The patient complained of shortness of breath during the stress test, which then resolved at the end of the test. ELECTROCARDIOGRAM: BASELINE: Showed sinus rhythm, normal axis, no significant ST-T changes at the baseline noted. EXERCISE: At the peak exercise level, no significant ST-T changes suggestive of ischemia noted. RECOVERY: During the recovery period, heart rate dropped appropriately. No significant ST-T changes in the recovery suggestive of ischemia noted. CONCLUSION: 1. Exercise capacity poor 2. Heart rate response was tachycardic. 3. Blood pressure response was appropriate. 4. Symptoms not suggestive of ischemia. 5. Electrocardiogram portion of the stress test was not suggestive of ischemia. Electronically Signed On 10-24-2025 15:51:20 [employer] by RAYMOND LEACH [email or web address]
[2025-10-08 11:57] VITALS: BMI 39.2
[2025-10-08 12:31] VITALS: BP 125/59; PULSE 106
== END 2025-10-08 11:40 | disposition home or self-care (01) ==
LOC: CDL 11:41
PROVIDERS: PCP Family Medicine; Visit Provider Internal Medicine Cardiovascular Disease
DX: R94.31 Abnormal electrocardiogram [ECG] [EKG] (principal); R93.1 Abnormal findings on diagnostic imaging of heart and coronary circulation
CPT/HCPCS: 93017